=== PATIENT | female | born 1985 | race Caucasian/White ===

== ENCOUNTER 2022-06-10 11:15 | Outpatient (CLI) | payer BC, SELFPAY ==
[2022-06-10 13:57] LABS: Cholesterol* 235 mg/dL (90-199); Glucose* 101 mg/dL (60-115); HDL Cholesterol* 80 mg/dL (>=50); LDL Cholesterol Calculated 140 mg/dL (<100); Triglycerides* 76 mg/dL (40-149)
== END 2022-06-10 11:16 | disposition home or self-care (01) ==
PROVIDERS: Visit Provider Physician Assistant
DX: Z13.1 Encounter for screening for diabetes mellitus (principal); Z13.6 Encounter for screening for cardiovascular disorders
CPT/HCPCS: 80061; 82947

== ENCOUNTER 2022-07-03 14:27 | Outpatient (CLI) | payer BC, SELFPAY ==
--- NOTE | 2022-07-03 14:40 | CRLHL7_ITS ---
For Patients: As a result of the Century Cures Act, medical imaging exams and procedure reports are released immediately into your electronic medical record. You may view this report before your referring provider. If you have questions, please contact your health care provider. BILATERAL SCREENING MAMMOGRAM WITH COMPUTER-AIDED DETECTION AND TOMOSYNTHESIS TECHNIQUE: CC and MLO views were obtained. These mammographic images have been obtained using full-field digital technique. These mammographic images were interpreted with the benefit of computer-aided detection. Breast Tomosynthesis was used in this interpretation. COMPARISON FILM: 07/02/21, 06/06/20, 03/15/19. FINDINGS: The breasts are heterogeneously dense, which may obscure small masses IMPRESSION: There is no radiographic evidence for malignancy. ASSESSMENT: BI-RADS Category 1: Negative RECOMMENDATION: Routine screening mammogram in 1 year. A lay language report of this examination will be provided to the patient. Abdulaziz Atkinson M.D. Diagnostic Radiologist [email or web address] Transcribed: 2:16 pm DW/Dictated by: Abdulaziz Atkinsno MD @ 07/04/2022 9:46:00 AM (Electronically Signed)
== END 2022-07-03 14:28 | disposition home or self-care (01) ==
LOC: MAMMO 14:28
PROVIDERS: Visit Provider Physician Assistant
DX: Z12.31 Encounter for screening mammogram for malignant neoplasm of breast (principal); R92.2 Inconclusive mammogram
CPT/HCPCS: 77063; 77067

== ENCOUNTER 2023-01-01 08:29 | Outpatient (CLI) | payer BC, SELFPAY ==
--- OUTSIDE RECORDS SUMMARY | 2023-01-02 08:33 | XMS_ITS | Patient Health Record ---
Author Name Unknown Organization [facility] Address [address] [place] [address] [address] [place] [address] Care Team Providers Care Computer Security Coordinator Name Role Phone Colleen Dangelo Primary Care Provider UnavailJean-Paul Martinez Unavailable [phone] Herman Monroe Unavailable Unavailable Ligia Messina Unavailable [phone] Shana Avendano Unavailable [phone] Lorie Ann Unavailable [phone] HtConnie quigley Unavailable [phone] ALLERGIES No Known Allergies REASON FOR REFERRAL Reason [facility] PT and OT: MED X LUMBAR Continue forward with an extended program. We will continue to use a phase 3 post fusion exercise protocol. I agree with the recommendation to cut back to 30 minute appointments over the next 4 visits, then decrease to 1 visit per week up to the point of discharge. Discharge timing will be determined by the therapists and patient in consultation. The patient need not see me again necessarily. Diagnosis 1 Fusion of spine, lum bosacral region (M43.27) Diagnosis 2 Low back pain (M54.5 0) Diagnosis 3 Other intervertebral disc degeneration, lumbar region (M51.36) Diagnosis 4 Radiculopathy, lumba r region (M54.16) Diagnosis 5 Segmental and somati c dysfunction of lumbar region (M99.03) Diagnosis 6 Muscle wasting and a trophy, not elsewhere classified, multiple sites (M62.59) Referral Organization [facility] Referring Provider First Name Jean-Paul Referring Provider Last Name Maykel Referring Provider Speciality Occupation al Medicine Referred Organization [facility] Referred Provider Wesley GarciaitatiNela gaspar Referred Address [address] [facility],[place], [place],[address], Referred Provider Specialty Rehabilitati on General Notes Moe Flores 05/19 08:27:36 AM >[employer], no PA required. OK to schedule., Debby Cartwright 05/28/2022 10:36:13 AM >Therapy is already scheduled. Referral Priority Routine MEDICATIONS Medication SIG (Take, Route, Fr equency, Duration) Notes Start Date End Date Status Tylenol 325 MG 1 tablet as needed O rally prn, max of 2000MG Active SOCIAL HISTORY Tobacco Use: Social History Observation Description Date Details (start date - stop date) Never Smoker NA - NA Sex Assigned At : Social History Observation Description Sex Assigned At Unknown Tobacco Use/Smoking: Question Answer Notes Are you a nonsmoker Alcohol Screen Question Answer Notes Did you have a drink contain ing alcohol in the past year? Yes How often did you have a dri nk containing alcohol in the past year? 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) Problem Low back pain (M54.50) Active confirmed Low back pain (591383293) Problem Other intervertebral disc degeneration, lumbar region (M51.36) 08/16/19 21 Active confirmed Degeneration of lumbar intervertebral disc (57631217) Problem Radiculopathy, lumbar region (M54.16) 08/16/19 21 Active confirmed Lumbar radiculopathy (976956951) Problem Other muscle spasm (M62.838) 08/16/19 21 Active confirmed Spasm (20255958) Problem Segmental and somatic dysfunction of lumbar region (M99.03) 08/16/19 21 Active confirmed Somatic dysfunction of lumbar region (336220335) Problem Other malaise (R53.81) 08/16/19 21 Active confirmed Malaise (181465465) Problem Sprain of sacroiliac joint, sequela (S33.6XXS) 08/16/19 21 Active confirmed Sprain of sacroiliac joint (28780697) Problem Other cervical disc displacement, mid-cervical region, 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) 08/16/19 21 Active confirmed Displacement of cervical intervertebral disc without myelopathy (24363342) Problem Low back pain (M54.5) 08/16/19 21 Active confirmed Low back pain (634466351) VITAL SIGNS Blood pressure diastolic 72 mm Hg 05/24/2022 Height 64 in 05/24/2022 Blood pressure systolic 110 mm Hg 05/24/2022 Weight 171 lbs 05/24/2022 BMI 29.35 kg/m2 05/24/2022 Encounters Encounter Location Date Provider Diagnosis [facility] [address] [place] [address] 02/25/2022 Jean-Paul Brar [facility] [address] [place] [address] 01/02/2022 Ligia Messina Fusion of spine, lumbosacral region M43.27 ; Low back pain M54.50 ; Other intervertebral disc degeneration, lumbar region M51.36 and Segmental and somatic dysfunction of lumbar region M99.03 [facility] [address] [place] [address] 07/17/2022 Ligia Messina Fusion of spine, lumbosacral region M43.27 ; Low back pain M54.50 ; Other intervertebral disc degeneration, lumbar region M51.36 and Segmental and somatic dysfunction of lumbar region M99.03 [facility] [address] [place] [address] 07/31/2022 Shana Teachout [facility] [address] [place] [address] 08/19/2022 Shana Teachout [facility] [address] [place] [address] 09/30/2022 Ligia Messina [facility] [address] [place] [address] 10/22/2022 Shana Teachout [facility] [address] [place] [address] 11/26/2022 Shana Teachout [facility] [address] [place] [address] 12/24/2022 Shana Teachout [facility] [address] [facility] [place] [address] 09/09/2022 Shana Teachout [facility] [address] [place] [address] 03/04/2022 Ligia Messina Fusion of spine, lumbosacral region M43.27 ; Low back pain M54.50 ; Other intervertebral disc degeneration, lumbar region M51.36 and Segmental and somatic dysfunction of lumbar region M99.03 [facility] [address] [place] [address] 01/03/2022 Lorie Ann [facility] [address] [place] [address] 01/04/2022 Connie Htet Fusion of spine, lumbosacral region M43.27 ; Low back pain M54.50 ; Other intervertebral disc degeneration, lumbar region M51.36 and Segmental and somatic dysfunction of lumbar region M99.03 [facility] [address] [place] [address] 01/07/2022 Shana Teachout Fusion of spine, lumbosacral region M43.27 ; Low back pain M54.50 ; Other intervertebral disc degeneration, lumbar region M51.36 and Segmental and somatic dysfunction of lumbar region M99.03 [facility] [address] [place] [address] 01/10/2022 Ligia Messina Fusion of spine, lumbosacral region M43.27 ; Low back pain M54.50 ; Other intervertebral disc degeneration, lumbar region M51.36 and Segmental and somatic dysfunction of lumbar region M99.03 [facility] [address] [place] [address] 01/14/2022 Ligia Messina Fusion of spine, lumbosacral region M43.27 ; Low back pain M54.50 ; Other intervertebral disc degeneration, lumbar region M51.36 and Segmental and somatic dysfunction of lumbar region M99.03 [facility] [address] [place] [address] 01/17/2022 Ligia Messina Fusion of spine, lumbosacral region M43.27 ; Low back pain M54.50 ; Other intervertebral disc degeneration, lumbar region M51.36 and Segmental and somatic dysfunction of lumbar region M99.03 [facility] [address] [place] [address] 01/22/2022 Lorie Ann Fusion of spine, lumbosacral region M43.27 ; Low back pain M54.50 ; Other intervertebral disc degeneration, lumbar region M51.36 and Segmental and somatic dysfunction of lumbar region M99.03 [facility] [address] [place] [address] 01/24/2022 Ligia Messina Fusion of spine, lumbosacral region M43.27 ; Low back pain M54.50 ; Other intervertebral disc degeneration, lumbar region M51.36 and Segmental and somatic dysfunction of lumbar region M99.03 [facility] [address] [place] [address] 01/28/2022 Ligia Messina Fusion of spine, lumbosacral region M43.27 ; Low back pain M54.50 ; Other intervertebral disc degeneration, lumbar region M51.36 and Segmental and somatic dysfunction of lumbar region M99.03 [facility] [address] [place] [address] 01/31/2022 Lorie Ann [facility] [address] [place] [address] 02/04/2022 Shana Teachout Fusion of spine, lumbosacral region M43.27 ; Low back pain M54.50 ; Other intervertebral disc degeneration, lumbar region M51.36 and Segmental and somatic dysfunction of lumbar region M99.03 [facility] [address] [place] [address] 02/07/2022 Lorie Ann [facility] [address] [place] [address] 02/11/2022 Shana Teachout Fusion of spine, lumbosacral region M43.27 ; Low back pain M54.50 ; Other intervertebral disc degeneration, lumbar region M51.36 and Segmental and somatic dysfunction of lumbar region M99.03 [facility] [address] [place] [address] 02/14/2022 Ligia Messina [facility] [address] [place] [address] 02/18/2022 Ligia Messina Fusion of spine, lumbosacral region M43.27 ; Low back pain M54.50 ; Other intervertebral disc degeneration, lumbar region M51.36 and Segmental and somatic dysfunction of lumbar region M99.03 [facility] [address] [place] [address] 02/25/2022 Shana Teachout Fusion of spine, lumbosacral region M43.27 ; Low back pain M54.50 ; Other intervertebral disc degeneration, lumbar region M51.36 and Segmental and somatic dysfunction of lumbar region M99.03 [facility] [address] [place] [address] 04/25/2022 Ligia Messina Fusion of spine, lumbosacral region M43.27 ; Low back pain M54.50 ; Other intervertebral disc degeneration, lumbar region M51.36 and Segmental and somatic dysfunction of lumbar region M99.03 [facility] [address] [place] [address] 04/29/2022 Ligia Messina Fusion of spine, lumbosacral region M43.27 ; Low back pain M54.50 ; Other intervertebral disc degeneration, lumbar region M51.36 and Segmental and somatic dysfunction of lumbar region M99.03 [facility] [address] [place] [address] 05/02/2022 Ligia Messina Fusion of spine, lumbosacral region M43.27 ; Low back pain M54.50 ; Other intervertebral disc degeneration, lumbar region M51.36 and Segmental and somatic dysfunction of lumbar region M99.03 [facility] [address] [place] [address] 05/06/2022 Shana Teachout Fusion of spine, lumbosacral region M43.27 ; Low back pain M54.50 ; Other intervertebral disc degeneration, lumbar region M51.36 and Segmental and somatic dysfunction of lumbar region M99.03 [facility] [address] [place] [address] 05/09/2022 Lorie Ann [facility] [address] [place] [address] 05/21/2022 Shana Teachout Fusion of spine, lumbosacral region M43.27 ; Low back pain M54.50 ; Other intervertebral disc degeneration, lumbar region M51.36 and Segmental and somatic dysfunction of lumbar region M99.03 [facility] [address] [place] [address] 05/24/2022 Lorie Ann Fusion of spine, lumbosacral region M43.27 ; Low back pain M54.50 ; Other intervertebral disc degeneration, lumbar region M51.36 and Segmental and somatic dysfunction of lumbar region M99.03 [facility] [address] [place] [address] 05/24/2022 Jean-Paul Brar Fusion of spine, lumbosacral region M43.27 ; Other intervertebral disc degeneration, lumbar region M51.36 ; Low back pain M54.50 ; Radiculopathy, lumbar region M54.16 ; Segmental and somatic dysfunction of lumbar region M99.03 and Muscle wasting and atrophy, not elsewhere classified, multiple sites M62.59 [facility] [address] [place] [address] 04/22/2022 Shana Teachout Fusion of spine, lumbosacral region M43.27 ; Low back pain M54.50 ; Other intervertebral disc degeneration, lumbar region M51.36 and Segmental and somatic dysfunction of lumbar region M99.03 [facility] [address] [place] [address] 05/27/2022 Ligia Messina [facility] [address] [place] [address] 05/27/2022 Ligia Messina Fusion of spine, lumbosacral region M43.27 ; Low back pain M54.50 ; Other intervertebral disc degeneration, lumbar region M51.36 and Segmental and somatic dysfunction of lumbar region M99.03 [facility] [address] [place] [address] 05/30/2022 Shana Teachout Fusion of spine, lumbosacral region M43.27 ; Low back pain M54.50 ; Other intervertebral disc degeneration, lumbar region M51.36 and Segmental and somatic dysfunction of lumbar region M99.03 [facility] [address] [place] [address] 06/04/2022 Ligia Messina Fusion of spine, lumbosacral region M43.27 ; Low back pain M54.50 ; Other intervertebral disc degeneration, lumbar region M51.36 and Segmental and somatic dysfunction of lumbar region M99.03 [facility] [address] [place] [address] 06/06/2022 Ligia Messina Fusion of spine, lumbosacral region M43.27 ; Low back pain M54.50 ; Other intervertebral disc degeneration, lumbar region M51.36 and Segmental and somatic dysfunction of lumbar region M99.03 [facility] [address] [place] [address] 06/11/2022 Ligia Messina Fusion of spine, lumbosacral region M43.27 ; Low back pain M54.50 ; Other intervertebral disc degeneration, lumbar region M51.36 and Segmental and somatic dysfunction of lumbar region M99.03 [facility] [address] [place] [address] 06/18/2022 Shana Teachout Fusion of spine, lumbosacral region M43.27 ; Low back pain M54.50 ; Other intervertebral disc degeneration, lumbar region M51.36 and Segmental and somatic dysfunction of lumbar region M99.03 [facility] [address] [place] [address] 07/01/2022 Ligia Messina Fusion of spine, lumbosacral region M43.27 ; Low back pain M54.50 ; Other intervertebral disc degeneration, lumbar region M51.36 and Segmental and somatic dysfunction of lumbar region M99.03 [facility] [address] [place] [address] 07/09/2022 Shana Teachout Fusion of spine, lumbosacral region M43.27 ; Low back pain M54.50 ; Other intervertebral disc degeneration, lumbar region M51.36 and Segmental and somatic dysfunction of lumbar region M99.03 ASSESSMENTS Encounter Date Diagnosis Assessment Notes Treatment Notes Treatment Clinical Notes 01/02/2022 Fusion of spine, lumbosacral region (ICD-10 - M43.27) 01/02/2022 Low back pain (ICD-10 - M54.50) 01/04/2022 Fusion of spine, lumbosacral region (ICD-10 - M43.27) 01/04/2022 Low back pain (ICD-10 - M54.50) 01/07/2022 Fusion of spine, lumbosacral region (ICD-10 - M43.27) 01/07/2022 Low back pain (ICD-10 - M54.50) 01/10/2022 Fusion of spine, lumbosacral region (ICD-10 - M43.27) 01/10/2022 Low back pain (ICD-10 - M54.50) 01/14/2022 Fusion of spine, lumbosacral region (ICD-10 - M43.27) 01/14/2022 Low back pain (ICD-10 - M54.50) 01/17/2022 Fusion of spine, lumbosacral region (ICD-10 - M43.27) 01/17/2022 Low back pain (ICD-10 - M54.50) 01/22/2022 Fusion of spine, lumbosacral region (ICD-10 - M43.27) 01/22/2022 Low back pain (ICD-10 - M54.50) 01/24/2022 Fusion of spine, lumbosacral region (ICD-10 - M43.27) 01/24/2022 Low back pain (ICD-10 - M54.50) 01/28/2022 Fusion of spine, lumbosacral region (ICD-10 - M43.27) 01/28/2022 Low back pain (ICD-10 - M54.50) 02/04/2022 Fusion of spine, lumbosacral region (ICD-10 - M43.27) 02/04/2022 Low back pain (ICD-10 - M54.50) 02/11/2022 Fusion of spine, lumbosacral region (ICD-10 - M43.27) 02/11/2022 Low back pain (ICD-10 - M54.50) 02/18/2022 Fusion of spine, lumbosacral region (ICD-10 - M43.27) 02/18/2022 Low back pain (ICD-10 - M54.50) 02/25/2022 Fusion of spine, lumbosacral region (ICD-10 - M43.27) 02/25/2022 Low back pain (ICD-10 - M54.50) 03/04/2022 Fusion of spine, lumbosacral region (ICD-10 - M43.27) 03/04/2022 Low back pain (ICD-10 - M54.50) 04/22/2022 Fusion of spine, lumbosacral region (ICD-10 - M43.27) 04/22/2022 Low back pain (ICD-10 - M54.50) 04/25/2022 Fusion of spine, lumbosacral region (ICD-10 - M43.27) 04/25/2022 Low back pain (ICD-10 - M54.50) 04/29/2022 Fusion of spine, lumbosacral region (ICD-10 - M43.27) 04/29/2022 Low back pain (ICD-10 - M54.50) 05/02/2022 Fusion of spine, lumbosacral region (ICD-10 - M43.27) 05/02/2022 Low back pain (ICD-10 - M54.50) 05/06/2022 Fusion of spine, lumbosacral region (ICD-10 - M43.27) 05/06/2022 Low back pain (ICD-10 - M54.50) 05/27/2022 Fusion of spine, lumbosacral region (ICD-10 - M43.27) 05/27/2022 Low back pain (ICD-10 - M54.50) 06/11/2022 Fusion of spine, lumbosacral region (ICD-10 - M43.27) 06/11/2022 Low back pain (ICD-10 - M54.50) 06/18/2022 Fusion of spine, lumbosacral region (ICD-10 - M43.27) 06/18/2022 Low back pain (ICD-10 - M54.50) 07/17/2022 Fusion of spine, lumbosacral region (ICD-10 - M43.27) 07/17/2022 Low back pain (ICD-10 - M54.50) 07/09/2022 Fusion of spine, lumbosacral region (ICD-10 - M43.27) 07/09/2022 Low back pain (ICD-10 - M54.50) 07/01/2022 Fusion of spine, lumbosacral region (ICD-10 - M43.27) 07/01/2022 Low back pain (ICD-10 - M54.50) 06/06/2022 Fusion of spine, lumbosacral region (ICD-10 - M43.27) 06/06/2022 Low back pain (ICD-10 - M54.50) 06/04/2022 Fusion of spine, lumbosacral region (ICD-10 - M43.27) 06/04/2022 Low back pain (ICD-10 - M54.50) 05/30/2022 Fusion of spine, lumbosacral region (ICD-10 - M43.27) 05/30/2022 Low back pain (ICD-10 - M54.50) 05/24/2022 Fusion of spine, lumbosacral region (ICD-10 - M43.27) 05/24/2022 Other intervertebral disc degeneration, lumbar region (ICD-10 - M51.36) 05/24/2022 Low back pain (ICD-10 - M54.50) 05/21/2022 Fusion of spine, lumbosacral region (ICD-10 - M43.27) 05/24/2022 Fusion of spine, lumbosacral region (ICD-10 - M43.27) 05/21/2022 Low back pain (ICD-10 - M54.50) 05/24/2022 Other intervertebral disc degeneration, lumbar region (ICD-10 - M51.36) 05/21/2022 Other intervertebral disc degeneration, lumbar region (ICD-10 - M51.36) 05/24/2022 Low back pain (ICD-10 - M54.50) 05/30/2022 Other intervertebral disc degeneration, lumbar region (ICD-10 - M51.36) 06/04/2022 Other intervertebral disc degeneration, lumbar region (ICD-10 - M51.36) 06/06/2022 Other intervertebral disc degeneration, lumbar region (ICD-10 - M51.36) 07/01/2022 Other intervertebral disc degeneration, lumbar region (ICD-10 - M51.36) 07/09/2022 Other intervertebral disc degeneration, lumbar region (ICD-10 - M51.36) 07/17/2022 Other intervertebral disc degeneration, lumbar region (ICD-10 - M51.36) 06/18/2022 Other intervertebral disc degeneration, lumbar region (ICD-10 - M51.36) 06/11/2022 Other intervertebral disc degeneration, lumbar region (ICD-10 - M51.36) 05/27/2022 Other intervertebral disc degeneration, lumbar region (ICD-10 - M51.36) 05/06/2022 Other intervertebral disc degeneration, lumbar region (ICD-10 - M51.36) 05/02/2022 Other intervertebral disc degeneration, lumbar region (ICD-10 - M51.36) 04/29/2022 Other intervertebral disc degeneration, lumbar region (ICD-10 - M51.36) 04/25/2022 Other intervertebral disc degeneration, lumbar region (ICD-10 - M51.36) 04/22/2022 Other intervertebral disc degeneration, lumbar region (ICD-10 - M51.36) 03/04/2022 Other intervertebral disc degeneration, lumbar region (ICD-10 - M51.36) 02/25/2022 Other intervertebral disc degeneration, lumbar region (ICD-10 - M51.36) 02/18/2022 Other intervertebral disc degeneration, lumbar region (ICD-10 - M51.36) 02/11/2022 Other intervertebral disc degeneration, lumbar region (ICD-10 - M51.36) 02/04/2022 Other intervertebral disc degeneration, lumbar region (ICD-10 - M51.36) 01/28/2022 Other intervertebral disc degeneration, lumbar region (ICD-10 - M51.36) 01/24/2022 Other intervertebral disc degeneration, lumbar region (ICD-10 - M51.36) 01/22/2022 Other intervertebral disc degeneration, lumbar region (ICD-10 - M51.36) 01/17/2022 Other intervertebral disc degeneration, lumbar region (ICD-10 - M51.36) 01/14/2022 Other intervertebral disc degeneration, lumbar region (ICD-10 - M51.36) 01/10/2022 Other intervertebral disc degeneration, lumbar region (ICD-10 - M51.36) 01/07/2022 Other intervertebral disc degeneration, lumbar region (ICD-10 - M51.36) 01/04/2022 Other intervertebral disc degeneration, lumbar region (ICD-10 - M51.36) 01/02/2022 Other intervertebral disc degeneration, lumbar region (ICD-10 - M51.36) 01/02/2022 Segmental and somatic dysfunction of lumbar region (ICD-10 - M99.03) 01/04/2022 Segmental and somatic dysfunction of lumbar region (ICD-10 - M99.03) 01/07/2022 Segmental and somatic dysfunction of lumbar region (ICD-10 - M99.03) 01/10/2022 Segmental and somatic dysfunction of lumbar region (ICD-10 - M99.03) 01/14/2022 Segmental and somatic dysfunction of lumbar region (ICD-10 - M99.03) 01/17/2022 Segmental and somatic dysfunction of lumbar region (ICD-10 - M99.03) 01/22/2022 Segmental and somatic dysfunction of lumbar region (ICD-10 - M99.03) 01/24/2022 Segmental and somatic dysfunction of lumbar region (ICD-10 - M99.03) 01/28/2022 Segmental and somatic dysfunction of lumbar region (ICD-10 - M99.03) 02/04/2022 Segmental and somatic dysfunction of lumbar region (ICD-10 - M99.03) 02/11/2022 Segmental and somatic dysfunction of lumbar region (ICD-10 - M99.03) 02/18/2022 Segmental and somatic dysfunction of lumbar region (ICD-10 - M99.03) 02/25/2022 Segmental and somatic dysfunction of lumbar region (ICD-10 - M99.03) 03/04/2022 Segmental and somatic dysfunction of lumbar region (ICD-10 - M99.03) 04/22/2022 Segmental and somatic dysfunction of lumbar region (ICD-10 - M99.03) 04/25/2022 Segmental and somatic dysfunction of lumbar region (ICD-10 - M99.03) 04/29/2022 Segmental and somatic dysfunction of lumbar region (ICD-10 - M99.03) 05/02/2022 Segmental and somatic dysfunction of lumbar region (ICD-10 - M99.03) 05/06/2022 Segmental and somatic dysfunction of lumbar region (ICD-10 - M99.03) 05/27/2022 Segmental and somatic dysfunction of lumbar region (ICD-10 - M99.03) 06/11/2022 Segmental and somatic dysfunction of lumbar region (ICD-10 - M99.03) 06/18/2022 Segmental and somatic dysfunction of lumbar region (ICD-10 - M99.03) 07/17/2022 Segmental and somatic dysfunction of lumbar region (ICD-10 - M99.03) 07/09/2022 Segmental and somatic dysfunction of lumbar region (ICD-10 - M99.03) 07/01/2022 Segmental and somatic dysfunction of lumbar region (ICD-10 - M99.03) 06/06/2022 Segmental and somatic dysfunction of lumbar region (ICD-10 - M99.03) 06/04/2022 Segmental and somatic dysfunction of lumbar region (ICD-10 - M99.03) 05/30/2022 Segmental and somatic dysfunction of lumbar region (ICD-10 - M99.03) 05/24/2022 Radiculopathy, lumbar region (ICD-10 - M54.16) 05/21/2022 Segmental and somatic dysfunction of lumbar region (ICD-10 - M99.03) 05/24/2022 Segmental and somatic dysfunction of lumbar region (ICD-10 - M99.03) 05/24/2022 Segmental and somatic dysfunction of lumbar region (ICD-10 - M99.03) 05/24/2022 Muscle wasting and atrophy, not elsewhere classified, multiple sites (ICD-10 - M62.59) 05/24/2022 Other I, Heath Quijano , am serving as a scribe to document services personally performed by Jean-Paul Brar MD, based upon my observations and the provider's statements to me. All documentation has been reviewed by the aforementioned doctor prior to being entered into the official medical record. I, Jean-Paul Brar MD attest that the above named individual is acting in scribe capacity, has observed my performance of the services and has documented them in accordance with my direction. The documentation recorded by the scribe accurately reflects the service I personally performed and the decisions made by me. PLAN OF TREATMENT No Information Insurance Providers Payer Name Payer Address Payer Phone Subscriber Number Group Number Insured Name Patient Relationship to Insured Coverage Start Date Coverage End Date [facility] [place] [address] [address] [place] [address] [phone] [id number] Keith Francis Spouse - patient is the spouse of the insured 1 MEDICAL (GENERAL) HISTORY Medical History History ICD Code Acid reflux Anxiety Surgical History Surgery Date(Month/Year) cholecystectomy 11/2012 L3-4,L4-5 Fusion 10/29/2021
--- OUTSIDE RECORDS SUMMARY | 2023-01-02 08:33 | XMS_ITS | Continuity of Care Document ---
Author Name Unknown Organization [facility] Address [address] [place] [address] Phone Care Team Providers Care Dining Room Supervisor Name Role Phone Panvica PAC, Franklin Unavailable Unavailable Allergies, Adverse Reactions, Alerts Substance Reaction Status Criticality No Known Allergies Active No Inform ation Medications Medication Instructions Dosage Effective Dates (start - stop) Status Comments No Drug Therapy Prescribed Procedures Procedure Date Office/Outpatient Visit,Est, Mod 2022 Office/Outpatient Visit,Est, Mod 2021 Office/Outpatient Visit,Est, Mod 2021 Postop Followup Visit X-Ray Exam Lower Spine 2-3 Views 2021 TLIF - Includes PSF at the same level - PA TLIF - Additional Level(s) Includes PSF at the same level - PA ALIF / OLIF Anterior Lumbar Interbody Fu tree - PA Posterior Instrumentation, 3-6 Segments - PA PEEK/ Cage/ Implant, For Interbody Fusio n - PA TLIF - Includes PSF at the same level Ju TLIF - Additional Level(s) Includes PSF at the same level ALIF / OLIF Anterior Lumbar Interbody Fu tree Posterior Instrumentation, 3-6 Segments PEEK/ Cage/ Implant, For Interbody Fusio n Bone Marrow Aspiration, From I ncision Allograft, Morcelized, and/or BMP Office/Outpatient Visit,Est, Mod 2021 X-Ray Exam Of Lower Spine, Bending Office/Outpatient Visit,Est, Mod 2021 Office/Outpatient Visit,Est, Mod 2020 Office/Outpatient Visit,Est, Mod 2020 Office/Outpatient Visit,Est, Mod 2019 Office/Outpatient Visit,New, Mod 2019 Advance Directives Directive Yes / No Effective Date File Name No Information Encounters Encounter Description Practice Location Reason(s) For Visit Diagnoses Date Provider Providers Copied on Encounter Office/Outpat ient Visit,Est, Mod [facility], [address], [place], [place], [address], [place] tel:[phone] [facility] Encounter for other specified surgical aftercare 3 Hodan Reid. [facility], [address] [place] [address], [address], [facility], [place], [id number] , [place]. tel:[phone] Referring Provider: Franklin Bates, [facility] [address], [address], [place], [address] . tel:[phone] Office/Outpat ient Visit,Est, Mod [facility], [address], [place], [address], [place] tel:[phone] [facility] Encounter for other specified surgical aftercare 2 Hodan Reid. [facility], [address], [address], [facility] [place], [place], [address] , [place]. tel:[phone] Referring Provider: Franklin Bates, [facility] [address], [address], [place], [address] . tel:[phone] Office/Outpat ient Visit,Est, Mod [facility], [address], [place], [address], [place] tel:[phone] [facility] [place] Encounter for other specified surgical aftercare 2 Panvica Franklin. [facility], [address], [address], [place], [address] , [place]. tel:[phone] Referring Provider: Franklin Bates, [facility] [address], [address], [place], [address] . tel:[phone] [facility], [address], [place], [address], [place] tel:[phone] [facility] Encounter for other specified surgical aftercare 2 Monroe Herman. [facility], [address], [address], [place], [address] , [place]. tel:[phone] Referring Provider: Franklin Bates, [facility] [address], [address], [place], [address] . tel:[phone] [facility], [address], [place], [address], [place] tel:[phone] [facility] No Information 2 Panvica Franklin. [facility], [address], [address], [place], [address] , [place]. tel:[phone] Referring Provider: Franklin Bates, [facility] [address], [address], [place], [address] . tel:[phone] [facility], [address], [place], [address], [place] tel:[phone] [facility] No Information 2 Monroe Herman. [facility], [address], [address], [place], [address] , [place]. tel:[phone] Referring Provider: Franklin Bates, [facility] [address], [address], [place], [address] . tel:[phone] Office/Outpat ient Visit,Est, Mod [facility], [address], [place], [address], [place] tel:[phone] [facility] Other intervertebral disc displacement, lumbar regionOther intervertebral disc degeneration, lumbar region Jul- 2 Panvica Franklin. [facility], [address], [address], [place], [address] , [place]. [phone] Referring Provider: Franklin Bates, [facility] [address], [address], [place], [address] . tel:[phone] Office/Outpat ient Visit,Est, Mod [facility], [address], [place], [address], [place] tel:[phone] [facility] Other intervertebral disc degeneration, lumbar regionOther intervertebral disc displacement, lumbar region Mar-1 0-202 2 Panvica Franklin. [facility], [address], [address], [place], [address] , [place]. [phone] Referring Provider: Franklin Bates, [facility] [address], [address], [place], [address] . tel:[phone] Office/Outpat ient Visit,Est, Mod [facility], [address], [place], [address], [place] tel:[phone] [facility] Other intervertebral disc degeneration, lumbar regionLow back pain 1 Fer Sutton. [facility], [address], [address], [place], [address] , [place]. [phone] Referring Provider: Franklin Bates, [facility] [address], [address], [place], [address] . tel:[phone] Office/Outpat ient Visit,Est, Mod [facility], [address], [place], [address], [place] tel:[phone] [facility] Other intervertebral disc degeneration, lumbar regionOther intervertebral disc displacement, lumbar region Carlos Manuel-0 7-202 1 Panvica Franklin. [facility], [address] [place] [address], [address], [place], [address] , [place]. [phone] Referring Provider: Franklin Bates, [address] [place] [address], [address], [place], [address] . tel:[phone] Office/Outpat ient Visit,Est, Mod [facility], [address], [place], [address], [place] tel:[phone] [facility] Other intervertebral disc degeneration, lumbar regionOther intervertebral disc displacement, lumbar regionLow back pain Sep-0 3-202 0 Panvica Franklin. [facility], [address] [place] [address], [address], [facility], [address] , [place]. [phone] Referring Provider: Franklin Bates, [address] [place] [address], [address], [place], [address] . tel:[phone] Office/Outpat ient Visit,New, Mod [facility], [address], [place], [address], [place] tel:[phone] [facility] Other intervertebral disc degeneration, lumbar regionOther intervertebral disc displacement, lumbar regionLow back pain Quintin-0 2-202 0 Panvica Franklin. [facility], [address] [place] [address], [address], [place], [address] , [place]. [phone] Referring Provider: Franklin Bates, [address], [address], [place], [address] . tel:[phone] Family History Family Member Type Diagnosis Age At Onset No Information Payers Payer name Insurance type Covered constitution party ID Sofie rivers(s) [facility] [id number] Social History Type Description Quantity Date Captured Comments Alcohol Use Details Unknown Caffeine Use Details Unknown Tobacco Use Status Current non-smoker Smoking Status Never smoker Non-Smoking Tobacco Use Details : No Details Available : No Details Available Sex Female Vital Signs Date / Time: Height Weight BMI Pulse Rate Blood Pressure Temperature Respiratory Rate Body Surface Area Head Circumference Head Circ. Percentile Wt./Jah. Percentile BMI percentile Pulse Ox Inhaled Ox 2:11 PM 63.50 in 73.028 kg (161.00 lbs) 28.0 7 kg/m eter (2) Chief Complaint And Reason For Visit No Information Reason For Referral Reason For Referral No Information Plan Of Treatment Date Type Action Status Future Order: Radiology Order F/ E Lumbar (F/ELumb), Ordered on: Ordered History Of Present Illness Encounter Date Complaint History Of Prese nt Illness No Information Functional Status Date Functional Assessmen t No Information Medications Administered Medication Instructions Dosage Effective Dates (start - stop) Status Comments No Drug Therapy Prescribed Instructions Date Instruction Additional Infor mation No Information Assessments Type Assessment Date assessment Encounter for other specified amor rgical aftercare Patient Care Teams Name Effective Dates (start - stop) Status Members No Information
== END 2023-01-01 08:30 | disposition home or self-care (01) ==
LOC: NFLDREF 01-02 08:31
PROVIDERS: PCP Physician Assistant Medical; Visit Provider Physician Assistant Medical
DX: N39.0 Urinary tract infection, site not specified (principal); R10.9 Unspecified abdominal pain; N30.01 Acute cystitis with hematuria
CPT/HCPCS: 87086

== ENCOUNTER 2023-01-22 07:06 | Outpatient (CLI) | payer BC, SELFPAY ==
--- OUTSIDE RECORDS SUMMARY | 2023-01-22 17:36 | XMS_ITS | Continuity of Care Document ---
Author Name Unknown Organization [facility] Address [address] [place] [address] Phone Care Team Providers Care Japanese Tutor Name Role Phone Panvica PAC, Franklin Unavailable [...] C, [address], [place], [address], [place] tel:[phone] [facility] Encounter for other specified surgical aftercare 3 Hodan Reid. [facility], [address] [place] [address], [address], [facility], [address] , [place]. tel:[phone] Referring Provider: Franklin Bates, [facility] [address], [address], [place], [address] . tel:[phone] Office/Outpat ient Visit,Est, Mod [facility], [address], [place], [address], [place] tel:[phone] [facility] Encounter for other specified surgical aftercare 2 Hodan Reid. [facility], [address], [address], [facility], [place], [address] , [place]. tel:[phone] Referring Provider: Franklin Bates, [facility] [address], [address], [place], [address] . tel:[phone] Office/Outpat ient Visit,Est, Mod [facility], [address], [place], [address], [place] tel:[phone] [facility] [place] Encounter for other specified surgical aftercare 2 Panvica Franklin. [facility], [address], [address], [place], [address] , [place]. tel:[phone] Referring Provider: Franklin Bates, [facility] [address], [address], [place], [address] . tel:[phone] [facility], [address], [place], [address], [place] tel:[phone] [facility] Encounter for other specified surgical aftercare 2 Monroe Herman. [facility], [address], [address], [place], [address] , [place]. tel:[phone] Referring Provider: Franklin Bates, [facility] [address], [address], [place], [address] . tel:[phone] [facility], [address], [place], [address], [place] tel:[phone] [facility] No Information 2 Panvica Franklin. [facility], [address], [address], [place], [address] , [place]. tel:[phone] Referring Provider: Franklin Bates, [facility] [address], [address], [place], [address] . tel:[phone] [facility], [address], [place], [address], [place] tel:[phone] [facility] No Information 2 Monroe Herman. [facility] [place], [address], [address], [place], [address] , [place]. tel:[phone] Referring Provider: Franklin Bates, [facility] [address], [address], [place], [address] . tel:[phone] Office/Outpat ient Visit,Est, Mod [facility], [address], [place], [address], [place] tel:[phone] [facility] Other intervertebral disc displacement, lumbar regionOther intervertebral disc degeneration, lumbar region Jul- 2 Panvica Franklin. [facility], [address], [address], [place], [address] , [place]. [phone] Referring Provider: Farnklin Bates, [facility] [address], [address], [place], [address] . tel:[phone] Office/Outpat ient Visit,Est, Mod [facility], [address], [place], [address], [place] tel:[phone] [facility] Other intervertebral disc degeneration, lumbar regionOther intervertebral disc displacement, lumbar region Mar-1 0-202 2 Panvica Franklin. [facility], [address], [address], [place], [address] , [place]. [phone] Referring Provider: Franklin Bates, [facility] [address], [address], [place], [address] . tel:[phone] Office/Outpat ient Visit,Est, Mod [facility], [address], [place], [address], [place] tel:[phone] [facility] Other intervertebral disc degeneration, lumbar regionLow back pain 1 Fer Sutton. [facility] [place], [address], [address], [place], [address] , [place]. [phone] Referring Provider: Franklin Bates, [facility] [address], [address], [place], [address] . tel:[phone] Office/Outpat ient Visit,Est, Mod [facility], [address], [place], [address], [place] tel:[phone] [facility] Other intervertebral disc degeneration, lumbar regionOther intervertebral disc displacement, lumbar region Carlos Manuel-0 7-202 1 Panvica Franklin. [facility], [address] [place] [address], [address], [place], [address] , [place]. [phone] Referring Provider: Franklin Bates, [address], [address], [place], [address] . tel:[phone] Office/Outpat ient Visit,Est, Mod [facility], [address], [place], [address], [place] tel:[phone] [facility] Other intervertebral disc degeneration, lumbar regionOther intervertebral disc displacement, lumbar regionLow back pain Sep-0 3-202 0 Panvica Franklin. [facility], [address] [place] [address], [address], [facility] [place], [address] , [place]. [phone] Referring Provider: Franklin Bates, [address], [address], [place], [address] . tel:[phone] Office/Outpat ient Visit,New, Mod [facility], [address], [place], [address], [place] tel:[phone] [facility] Other intervertebral disc degeneration, lumbar regionOther intervertebral disc displacement, lumbar regionLow back pain Quintin-0 2-202 0 Panvica Franklin. [facility], [address] [place] [address], [address], [place], [address] , [place]. [phone] Referring Provider: Franklin Bates, [address], [address], [place], [address] . tel:[phone] Family History Family Member Type Diagnosis Age At Onset No Information Payers Payer name Insurance type Covered constitution party ID Sofie rivers(s) [facility] [id number] Social History Type Description Quantity Date Captured [...]
== END 2023-01-22 07:07 | disposition home or self-care (01) ==
LOC: NFLDREF 17:35
PROVIDERS: PCP Physician Assistant Medical; Referring Provider Physician Assistant Medical; Visit Provider Physician Assistant Medical
DX: R30.0 Dysuria (principal); N39.0 Urinary tract infection, site not specified; R31.9 Hematuria, unspecified; N30.01 Acute cystitis with hematuria; R31.29 Other microscopic hematuria
CPT/HCPCS: 87086

== ENCOUNTER 2023-04-02 07:31 | Outpatient (CLI) | payer BC, SELFPAY ==
--- OUTSIDE RECORDS SUMMARY | 2023-04-02 07:33 | XMS_ITS | Continuity of Care Document ---
Author Name Unknown Organization [facility] Address [address] [place] [address] Phone Care Team Providers Care Cafe Helper Name Role Phone Panvica PAC, Franklin Unavailable [...] C, [address], [place], [id number], [place] tel:[phone] [facility] Encounter for other specified surgical aftercare 3 Hodan Reid. [facility], [address] [place] [address], [address], [facility], [place], [id number] , [place]. tel:[phone] Referring Provider: Franklin Bates, [facility] [address], [address], [place], [address] . tel:[phone] Office/Outpat ient Visit,Est, [facility], [address], [place], [place], [address], [place] tel:[phone] [facility] Encounter for other specified surgical aftercare 2 Hodan Reid. [facility], [address], [address], [facility] [place], [place], [address] , [place]. tel:[phone] Referring Provider: Franklin Bates, [facility] [address], [address], [place], [address] . tel:[phone] Office/Outpat ient Visit,Est, Mod [facility], [address], [place], [place], [address], [place] tel:[phone] [facility] [place] Encounter for other specified surgical aftercare 2 Panvica Franklin. [facility], [address], [address], [place], [place], [address] , [place]. tel:[phone] Referring Provider: Franklin Bates, [facility] [address], [address], [place], [address] . tel:[phone] [facility], [address], [place], [address], [place] tel:[phone] [facility] Encounter for other specified surgical aftercare 2 Monroe Herman. [facility], [address], [address], [place], [address] , [place]. tel:[phone] Referring Provider: Franklin Bates, [facility] [address], [address], [place], [address] . tel:[phone] [facility], [address], [place], [address], [place] tel:[phone] [facility] No Information 2 Panvica Franklin. [facility], [address], [address], [place], [place], [address] , [place]. tel:[phone] Referring Provider: Franklin Bates, [facility] [address], [address], [place], [address] . tel:[phone] [facility], [address], [place], [address], [place] tel:[phone] [facility] No Information 2 Monroe Herman. [facility], [address], [address], [place], [address] , [place]. tel:[phone] Referring Provider: Franklin Bates, [facility] [address], [address], [place], [address] . tel:[phone] Office/Outpat ient Visit,Est, Mod [facility], [address], [place], [place], [address], [place] tel:[phone] [facility] Other intervertebral disc displacement, lumbar regionOther intervertebral disc degeneration, lumbar region Jul- 2 Panvica Franklin. [facility], [address], [address], [place], [address] , [place]. [phone] Referring Provider: Franklin Bates, [facility] [address], [address], [place], [address] . tel:[phone] Office/Outpat ient Visit,Est, Mod [facility], [address], [place], [address], [place] tel:[phone] [facility] Other intervertebral disc degeneration, lumbar regionOther intervertebral disc displacement, lumbar region Mar-1 0-202 2 Panvica Franklin. [facility], [address], [address], [place], [address] , [place]. [phone] Referring Provider: Franklin Bates, [facility] [address], [address], [place], [address] . tel:[phone] Office/Outpat ient Visit,Est, [facility], [address], [place], [address], [place] tel:[phone] [facility] Other intervertebral disc degeneration, lumbar regionLow back pain 1 Fer Sutton. [facility], [address], [address], [place], [place], [address] , [place]. [phone] Referring Provider: Franklin Bates, [facility] [address], [address], [place], [address] . tel:[phone] Office/Outpat ient Visit,Est, [facility], [address], [place], [address], [place] tel:[phone] [facility] Other intervertebral disc degeneration, lumbar regionOther intervertebral disc displacement, lumbar region Carlos Manuel-0 7-202 1 Panvica Franklin. [facility], [address] [place] [address], [address], [place], [address] , [place]. [phone] Referring Provider: Franklin Bates, [address], [address], [place], [address] . tel:[phone] Office/Outpat ient Visit,Est, [facility], [address], [place], [address], [place] tel:[phone] [facility] Other intervertebral disc degeneration, lumbar regionOther intervertebral disc displacement, lumbar regionLow back pain Sep-0 3-202 0 Panvica Franklin. [facility], [address] [place] [address], [address], [facility], [address] , [place]. [phone] Referring Provider: Franklin Bates, [address], [address], [place], [address] . tel:[phone] Office/Outpat ient Visit,New, Mod [facility], [address], [place], [place], [address], [place] tel:[phone] [facility] Other intervertebral disc degeneration, lumbar regionOther intervertebral disc displacement, lumbar regionLow back pain Quintin-0 2-202 0 Panvica Franklin. [facility], [address] [place] [address], [address], [place], [address] , [place]. [phone] Referring Provider: Franklin Bates, [address], [address], [place], [address] . tel:[phone] Family History Family Member Type Diagnosis Age At Onset No Information Payers Payer name Insurance type Covered democrat ID Sofie rivers(s) [facility] [id number] Social History Type Description Quantity Date Captured [...]
--- OUTSIDE RECORDS SUMMARY | 2023-04-02 07:33 | XMS_ITS | Patient Health Record ---
Author Name Unknown Organization [facility] Address [address] [place] [address] [address] [place] [address] Care Team Providers Care Fabrication Mig Welder Name Role Phone Antolin Colleen Primary Care Provider UnavailJean-Paul Martinez Unavailable [phone] Herman Monroe MD Unavailable Unavailable Ligia Messina Unavailable [phone] Shana Avendano Unavailable [phone] Lorie Ann Unavailable [phone] ALLERGIES No Known Allergies REASON FOR REFERRAL [...] Provider Wesley GarciaitatiNela gaspar Referred Address [address] [place],[address], Referred Provider Specialty Rehabilitati on General Notes LeedahlJosueMoe 05/19 08:27:36 AM >[employer] Fed, no PA [...] lumbosacral region (M43.27) Active confirmed Lumbosacral arthrodesis (07307836) Problem Muscle wasting and atrophy, not elsewhere classified, multiple sites (M62.59) Active confirmed Muscle wasting disorder (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) Problem Low back pain (M54.50) Active confirmed Low back pain (132935123) Problem Other intervertebral disc degeneration, lumbar region (M51.36) 08/16/19 21 Active confirmed Degeneration of lumbar intervertebral disc (98487455) Problem Radiculopathy, lumbar region (M54.16) 08/16/19 21 Active confirmed Lumbar radiculopathy (300377824) Problem Other muscle spasm (M62.838) 08/16/19 21 Active confirmed Spasm (91548739) Problem Segmental and somatic dysfunction of lumbar region (M99.03) 08/16/19 21 Active confirmed Somatic dysfunction of lumbar region (895811432) Problem Other malaise (R53.81) 08/16/19 21 Active confirmed Malaise (687952621) Problem Sprain of sacroiliac joint, sequela (S33.6XXS) 08/16/19 21 Active confirmed Sprain of sacroiliac joint (12768556) Problem Other cervical disc displacement, mid-cervical region, 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) 08/16/19 21 Active confirmed Displacement of cervical intervertebral disc without myelopathy (05726129) Problem Low back pain (M54.5) 08/16/19 21 Active confirmed Low back pain (606965531) VITAL SIGNS Blood pressure diastolic 72 mm Hg 05/24/2022 Height 64 in 05/24/2022 Blood pressure systolic 110 mm Hg 05/24/2022 Weight 171 lbs 05/24/2022 BMI 29.35 kg/m2 05/24/2022 Encounters Encounter Location Date Provider Diagnosis [facility] [address] [place] [address] 07/17/2022 Ligia Messina Fusion of spine, lumbosacral region M43.27 ; Low back pain M54.50 ; Other intervertebral disc degeneration, lumbar region M51.36 and Segmental and somatic dysfunction of lumbar region M99.03 [facility] [address] [place] [address] 07/31/2022 Shana Teachout [facility] [address] [place] [address] 08/19/2022 Shana Teachout [facility] [address] [place] [address] 09/30/2022 Ligia Messina [facility] [address] [place] [address] 10/22/2022 Shana Teachout [facility] [address] [place] [address] 11/26/2022 Shana Teachout [facility] [address] [place] [address] 12/24/2022 Shana Teachout [facility] [address] [place] [address] 09/09/2022 Shana Teachout [facility] [address] [place] [address] 04/25/2022 Ligia Messina Fusion of spine, lumbosacral region M43.27 ; Low back pain M54.50 ; Other intervertebral disc degeneration, lumbar region M51.36 and Segmental and somatic dysfunction of lumbar region M99.03 [facility] [address] [facility] [place] [address] 04/29/2022 Ligia Messina Fusion of spine, lumbosacral region M43.27 ; Low back pain M54.50 ; Other intervertebral disc degeneration, lumbar region M51.36 and Segmental and somatic dysfunction of lumbar region M99.03 [facility] [address] [place] [address] 05/02/2022 Ligia Messina Fusion of spine, lumbosacral region M43.27 ; Low back pain M54.50 ; Other intervertebral disc degeneration, lumbar region M51.36 and Segmental and somatic dysfunction of lumbar region M99.03 [facility] [address] [place] [address] 05/06/2022 Shana Teachout Fusion of spine, lumbosacral region M43.27 ; Low back pain M54.50 ; Other intervertebral disc degeneration, lumbar region M51.36 and Segmental and somatic dysfunction of lumbar region M99.03 [facility] [address] [place] [address] 05/09/2022 Lorie Ann [facility] [address] [place] [address] 05/21/2022 Shana Teachout Fusion of spine, lumbosacral region M43.27 ; Low back pain M54.50 ; Other intervertebral disc degeneration, lumbar region M51.36 and Segmental and somatic dysfunction of lumbar region M99.03 [facility] [address] [place] [address] 05/24/2022 Lorie Ann Fusion of spine, lumbosacral region M43.27 ; Low back pain M54.50 ; Other intervertebral disc degeneration, lumbar region M51.36 and Segmental and somatic dysfunction of lumbar region M99.03 [facility] [address] [place] [address] 05/24/2022 Jean-Paul Brar Fusion of spine, lumbosacral region M43.27 ; Other intervertebral disc degeneration, lumbar region M51.36 ; Low back pain M54.50 ; Radiculopathy, lumbar region M54.16 ; Segmental and somatic dysfunction of lumbar region M99.03 and Muscle wasting and atrophy, not elsewhere classified, multiple sites M62.59 [facility] [address] [place] [address] 04/22/2022 Shana Teachout Fusion of spine, lumbosacral region M43.27 ; Low back pain M54.50 ; Other intervertebral disc degeneration, lumbar region M51.36 and Segmental and somatic dysfunction of lumbar region M99.03 [facility] [address] [place] [address] 05/27/2022 Ligia Messina [facility] [address] [place] [address] 05/27/2022 Ligia Messina Fusion of spine, lumbosacral region M43.27 ; Low back pain M54.50 ; Other intervertebral disc degeneration, lumbar region M51.36 and Segmental and somatic dysfunction of lumbar region M99.03 [facility] [address] [place] [address] 05/30/2022 Shana Teachout Fusion of spine, lumbosacral region M43.27 ; Low back pain M54.50 ; Other intervertebral disc degeneration, lumbar region M51.36 and Segmental and somatic dysfunction of lumbar region M99.03 [facility] [address] [place] [address] 06/04/2022 Ligia Messina Fusion of spine, lumbosacral region M43.27 ; Low back pain M54.50 ; Other intervertebral disc degeneration, lumbar region M51.36 and Segmental and somatic dysfunction of lumbar region M99.03 [facility] [address] [place] [address] 06/06/2022 Ligia Messina Fusion of spine, lumbosacral region M43.27 ; Low back pain M54.50 ; Other intervertebral disc degeneration, lumbar region M51.36 and Segmental and somatic dysfunction of lumbar region M99.03 [facility] [address] [place] [address] 06/11/2022 Ligia Messina Fusion of spine, lumbosacral region M43.27 ; Low back pain M54.50 ; Other intervertebral disc degeneration, lumbar region M51.36 and Segmental and somatic dysfunction of lumbar region M99.03 [facility] [address] [place] [address] 06/18/2022 Shana Teachout Fusion of spine, lumbosacral region M43.27 ; Low back pain M54.50 ; Other intervertebral disc degeneration, lumbar region M51.36 and Segmental and somatic dysfunction of lumbar region M99.03 [facility] [address] [place] [address] 07/01/2022 Ligia Messina Fusion of spine, lumbosacral region M43.27 ; Low back pain M54.50 ; Other intervertebral disc degeneration, lumbar region M51.36 and Segmental and somatic dysfunction of lumbar region M99.03 [facility] [address] [place] [address] 07/09/2022 Shana Teachout Fusion of spine, lumbosacral region M43.27 ; Low back pain M54.50 ; Other intervertebral disc degeneration, lumbar region M51.36 and Segmental and somatic dysfunction of lumbar region M99.03 ASSESSMENTS Encounter Date Diagnosis Assessment Notes Treatment Notes Treatment Clinical Notes 04/22/2022 Fusion of spine, lumbosacral region (ICD-10 [...] 05/06/2022 Low back pain (ICD-10 - M54.50) 07/01/2022 Fusion of spine, lumbosacral region (ICD-10 - M43.27) 07/01/2022 Low back pain (ICD-10 - M54.50) 07/09/2022 Fusion of spine, lumbosacral region (ICD-10 - M43.27) 07/09/2022 Low back pain (ICD-10 - M54.50) 07/17/2022 Fusion of spine, lumbosacral region (ICD-10 - M43.27) 07/17/2022 Low back pain (ICD-10 - M54.50) 06/18/2022 Fusion of spine, lumbosacral region (ICD-10 - M43.27) 06/18/2022 Low back pain (ICD-10 - M54.50) 06/11/2022 Fusion of spine, lumbosacral region (ICD-10 - M43.27) 06/11/2022 Low back pain (ICD-10 - M54.50) 06/06/2022 Fusion of spine, lumbosacral region (ICD-10 - M43.27) 06/06/2022 Low back pain (ICD-10 - M54.50) 06/04/2022 Fusion of spine, lumbosacral region (ICD-10 - M43.27) 06/04/2022 Low back pain (ICD-10 - M54.50) 05/30/2022 Fusion of spine, lumbosacral region (ICD-10 - M43.27) 05/30/2022 Low back pain (ICD-10 - M54.50) 05/27/2022 Fusion of spine, lumbosacral region (ICD-10 - M43.27) 05/27/2022 Low back pain (ICD-10 - M54.50) 05/24/2022 Fusion of spine, lumbosacral region (ICD-10 - M43.27) 05/24/2022 Other intervertebral disc degeneration, lumbar region (ICD-10 - M51.36) 05/24/2022 Fusion of spine, lumbosacral region (ICD-10 - M43.27) 05/24/2022 Low back pain (ICD-10 - M54.50) 05/21/2022 Fusion of spine, lumbosacral region (ICD-10 - M43.27) 05/21/2022 Low back pain (ICD-10 - M54.50) 05/21/2022 Other intervertebral disc degeneration, lumbar region (ICD-10 - M51.36) 05/24/2022 Other intervertebral disc degeneration, lumbar region (ICD-10 - M51.36) 05/24/2022 Low back pain (ICD-10 - M54.50) 05/27/2022 Other intervertebral disc degeneration, lumbar region (ICD-10 - M51.36) 05/30/2022 Other intervertebral disc degeneration, lumbar region [...] degeneration, lumbar region (ICD-10 - M51.36) 04/22/2022 Segmental and somatic dysfunction of lumbar [...] 05/24/2022 Radiculopathy, lumbar region (ICD-10 - M54.16) 05/24/2022 Segmental and somatic dysfunction of lumbar region (ICD-10 - M99.03) 05/21/2022 Segmental and somatic dysfunction of lumbar [...] Insured Coverage Start Date Coverage End Date [facility] [address] [address] [place] [address] [id number] Keith Francis Spouse - patient is the spouse of the insured 1 MEDICAL (GENERAL) HISTORY Medical History History ICD Code Acid reflux Anxiety Surgical History Surgery Date(Month/Year) cholecystectomy 11/2012 L3-4,L4-5 Fusion 10/29/2021
--- NOTE | 2023-04-02 07:45 | CRLHL7_ITS ---
For Patients: As a result of the Century Cures Act, medical imaging exams and procedure reports are released immediately into your electronic medical record. You may view this report before your referring provider. If you have questions, please contact your health care provider. DIGITAL DIAGNOSTIC BILATERAL MAMMOGRAM USING TOMOSYNTHESIS AND COMPUTER-AIDED DETECTION LEFT BREAST ULTRASOUND CLINICAL HISTORY: LEFT breast lump. COMPARISON: 07/03/2022, 07/02/2021, 06/06/20, 03/15/2019. TECHNIQUE: Digital BILATERAL mammogram in four projections. Tomosynthesis and CAD utilized. Real-time ultrasound imaging of LEFT breast with imaging documentation. BREAST COMPOSITION: There are areas of scattered fibroglandular density. FINDINGS: 3D CC/MLO BILATERAL mammogram images submitted. No suspicious masses or architectural distortion. Benign calcifications noted. No adenopathy. Targeted LEFT breast ultrasound performed in the area of concern 9 o`clock 5 cm from the nipple. Normal fibroglandular tissue is present. No fibrocystic change or mass. IMPRESSION: Normal BILATERAL mammogram images and normal targeted LEFT breast ultrasound. No evidence of malignancy. RECOMMENDATIONS: Routine BILATERAL screening mammography. Results and recommendations discussed with the patient. BI-RADS Category 2: Benign A lay language report of this examination will be provided to the patient. Dictated by Abdulaziz Atkinson MD @ 04/02/2023 11:05:41 AM jj/Dictated by: Abdulaziz Atkinson MD @ 04/02/2023 11:05:00 AM (Electronically Signed)
--- NOTE | 2023-04-02 08:15 | CRLHL7_ITS ---
For Patients: As a result of the Cures Act, medical imaging exams and procedure reports are released immediately into your electronic medical record. You may view this report before your referring provider. If you have questions, please contact your health care provider. PLEASE SEE DIGITAL DIAGNOSTIC BILATERAL MAMMOGRAM PERFORMED SAME DAY CRL:teressa gannon/Dictated by: Abdulaziz Atkinson MD @ 04/02/2023 11:05:00 AM (Electronically Signed)
== END 2023-04-02 07:32 | disposition home or self-care (01) ==
LOC: MAMMO 07:31
PROVIDERS: PCP Physician Assistant Medical; Visit Provider Physician Assistant
DX: N63.20 Unspecified lump in the left breast, unspecified quadrant (principal)
CPT/HCPCS: 76642; 77066; G0279

== ENCOUNTER 2023-04-23 14:51 | Outpatient (CLI) | payer BC, SELFPAY ==
--- OUTSIDE RECORDS SUMMARY | 2023-04-23 14:53 | XMS_ITS | Continuity of Care Document ---
Author Name Unknown Organization [facility] Address [address] [place] [address] Phone Care Team Providers Care Procedure Analyst Name Role Phone Panvica PAC, Franklin Unavailable [...] C, [address], [place], [address], [place] tel:[phone] [facility] Encounter for other specified surgical aftercare 3 Hodan Reid. [facility], [address] [place] [address], [address], [facility], [place], [address] , [place]. tel:[phone] Referring Provider: Franklin Bates, [facility] [address], [address], [place], [address] . tel:[phone] Office/Outpat ient Visit,Est, [facility], [address], [place], [address], [place] tel:[phone] [facility] Encounter for other specified surgical aftercare 2 Hodan Reid. [facility], [address], [address], [facility] [place], [place], [address] , [place]. tel:[phone] Referring Provider: Franklin Bates, [facility] [address], [address], [place], [address] . tel:[phone] Office/Outpat ient Visit,Est, Mod [facility], [address], [place], [address], [place] tel:[phone] [facility] [place] Encounter for other specified surgical aftercare 2 Panvica Franklin. [facility], [address], [address], [place], [place], [address] , [place]. tel:[phone] Referring Provider: Franklin Bates, [facility] [address], [address], [place], [address] . tel:[phone] [facility], [address], [place], [place], [address], [place] tel:[phone] [facility] Encounter for other specified surgical aftercare 2 Monroe Herman. [facility], [address], [address], [place], [address] , [place]. tel:[phone] Referring Provider: Franklin Bates, [facility] [address], [address], [place], [address] . tel:[phone] [facility], [address], [place], [address], [place] tel:[phone] [facility] No Information 2 Panvica Franklin. [facility], [address], [address], [place], [place], [address] , [place]. tel:[phone] Referring Provider: Franklin Bates, [facility] [address], [address], [place], [address] . tel:[phone] [facility], [address], [place], [place], [address], [place] tel:[phone] [facility] No Information 2 Monroe Herman. [facility], [address], [address], [place], [place], [address] , [place]. tel:[phone] Referring Provider: Franklin Bates, [facility] [address], [address], [place], [address] . tel:[phone] Office/Outpat ient Visit,Est, Mod [facility], [address], [place], [address], [place] tel:[phone] [facility] Other intervertebral disc displacement, lumbar regionOther intervertebral disc degeneration, lumbar region Jul- 2 Panvica Franklin. [facility], [address], [address], [place], [place], [address] , [place]. [phone] Referring Provider: Franklin Bates, [facility] [address], [address], [place], [address] . tel:[phone] Office/Outpat ient Visit,Est, Mod [facility], [address], [place], [place], [address], [place] tel:[phone] [facility] Other intervertebral disc degeneration, lumbar regionOther intervertebral disc displacement, lumbar region Mar-1 0-202 2 Panvica Franklin. [facility], [address], [address], [place], [address] , [place]. [phone] Referring Provider: Franklin Bates, [facility] [address], [address], [place], [address] . tel:[phone] Office/Outpat ient Visit,Est, Mod [facility], [address], [place], [place], [address], [place] tel:[phone] [facility] Other intervertebral disc degeneration, lumbar regionLow back pain 1 Fer Sutton. [facility], [address], [address], [place], [place], [address] , [place]. [phone] Referring Provider: Franklin Bates, [facility] [address], [address], [place], [address] . tel:[phone] Office/Outpat ient Visit,Est, [facility], [address], [place], [address], [place] tel:[phone] [facility] Other intervertebral disc degeneration, lumbar regionOther intervertebral disc displacement, lumbar region Carlos Manuel-0 7-202 1 Panvica Franklin. [facility], [address] [place] [address], [address], [place], [place], [address] , [place]. [phone] Referring Provider: Franklin Bates, [address], [address], [facility] [place], [address] . tel:[phone] Office/Outpat ient Visit,Est, [facility], [address], [place], [address], [place] tel:[phone] [facility] Other intervertebral disc degeneration, lumbar regionOther intervertebral disc displacement, lumbar regionLow back pain Sep-0 3-202 0 Panvica Franklin. [facility], [address] [place] [address], [address], [facility] [place], [address] , [place]. [phone] Referring Provider: Franklin Bates, [address], [address], [place] [place], [address] . tel:[phone] Office/Outpat ient Visit,New, Mod [facility], [address], [place], [place], [address], [place] tel:[phone] [facility] Other intervertebral disc degeneration, lumbar regionOther intervertebral disc displacement, lumbar regionLow back pain Quintin-0 2-202 0 Panvica Franklin. [facility], [address] [place] [address], [address], [place], [place], [address] , [place]. [phone] Referring Provider: Franklin Bates, [address], [address], [place], [address] . tel:[phone] Family History Family Member Type Diagnosis Age At Onset No Information Payers Payer name Insurance type Covered libertarian ID Sofie rivers(s) [facility] [id number] Social History Type Description Quantity Date Captured [...]
--- OUTSIDE RECORDS SUMMARY | 2023-04-23 14:54 | XMS_ITS | Patient Health Record ---
Author Name Unknown Organization [facility] Address [address] [place] [address] [address] [place] [address] Care Team Providers Care Manager Adult Name Role Phone Antolin Colleen Primary Care Provider UnavailJean-Paul Martinez Unavailable [phone] Herman Monroe MD Unavailable Unavailable Ligia Messina Unavailable [phone] Shana Avendano Unavailable [phone] Lorie Ann Unavailable [phone] ALLERGIES No Known Allergies REASON FOR REFERRAL [...] Provider Wesley GarciaitatiNela gaspar Referred Address [address] [place],[address], Referred Provider Specialty Rehabilitati on General Notes [...] lumbosacral region (M43.27) Active confirmed Lumbosacral arthrodesis (83684697) Problem Muscle wasting and atrophy, not elsewhere classified, multiple sites (M62.59) Active confirmed 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) Problem Low back pain (M54.50) Active confirmed Low back pain (384480015) Problem Other intervertebral disc degeneration, lumbar region (M51.36) 08/16/19 21 Active confirmed Degeneration of lumbar intervertebral disc (87197878) Problem Radiculopathy, lumbar region (M54.16) 08/16/19 21 Active confirmed Lumbar radiculopathy (723776394) Problem Other muscle spasm (M62.838) 08/16/19 21 Active confirmed Spasm (46814618) Problem Segmental and somatic dysfunction of lumbar region (M99.03) 08/16/19 21 Active confirmed Somatic dysfunction of lumbar region (367364365) Problem Other malaise (R53.81) 08/16/19 21 Active confirmed Malaise (763602799) Problem Sprain of sacroiliac joint, sequela (S33.6XXS) 08/16/19 21 Active confirmed Sprain of sacroiliac joint (74868822) Problem Other cervical disc displacement, mid-cervical region, 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) 08/16/19 21 Active confirmed Displacement of cervical intervertebral disc without myelopathy (84111292) Problem Low back pain (M54.5) 08/16/19 21 Active confirmed Low back pain (135053711) VITAL SIGNS Blood pressure diastolic 72 mm Hg 05/24/2022 Height 64 in 05/24/2022 Blood pressure systolic 110 mm Hg 05/24/2022 Weight 171 lbs 05/24/2022 BMI 29.35 kg/m2 05/24/2022 Encounters Encounter Location Date Provider Diagnosis [facility] [address] [place] [address] 04/25/2022 Ligia Messina Fusion of spine, lumbosacral region M43.27 ; Low back pain M54.50 ; Other intervertebral disc degeneration, lumbar region M51.36 and Segmental and somatic dysfunction of lumbar region M99.03 [facility] [address] [place] [address] 04/29/2022 Ligia Messina Fusion of spine, lumbosacral region M43.27 ; Low back pain M54.50 ; Other intervertebral disc degeneration, lumbar region M51.36 and Segmental and somatic dysfunction of lumbar region M99.03 [facility] [address] [place] [address] 05/02/2022 Ligia Messina Fusion of spine, lumbosacral region M43.27 ; Low back pain M54.50 ; Other intervertebral disc degeneration, lumbar region M51.36 and Segmental and somatic dysfunction of lumbar region M99.03 [facility] [address] [place] [address] 05/06/2022 Shana Teachout Fusion of spine, lumbosacral region M43.27 ; Low back pain M54.50 ; Other intervertebral disc degeneration, lumbar region M51.36 and Segmental and somatic dysfunction of lumbar region M99.03 [facility] [address] [place] [address] 05/09/2022 Lorie Ann [facility] [address] [place] [address] 05/21/2022 Shana Teachout Fusion of spine, lumbosacral region M43.27 ; Low back pain M54.50 ; Other intervertebral disc degeneration, lumbar region M51.36 and Segmental and somatic dysfunction of lumbar region M99.03 [facility] [address] [place] [address] 05/24/2022 Lorie Marissa Fusion of spine, lumbosacral region M43.27 ; Low back pain M54.50 ; Other intervertebral disc degeneration, lumbar region M51.36 and Segmental and somatic dysfunction of lumbar region M99.03 [facility] [address] [place] [address] 05/24/2022 Jean-Paul Brar Fusion of spine, lumbosacral region M43.27 ; Other intervertebral disc degeneration, lumbar region M51.36 ; Low back pain M54.50 ; Radiculopathy, lumbar region M54.16 ; Segmental and somatic dysfunction of lumbar region M99.03 and Muscle wasting and atrophy, not elsewhere classified, multiple sites M62.59 [facility] [address] [place] [address] 05/27/2022 Ligia Messina [facility] [address] [place] [address] 05/27/2022 Ligia Messina Fusion of spine, lumbosacral region M43.27 ; Low back pain M54.50 ; Other intervertebral disc degeneration, lumbar region M51.36 and Segmental and somatic dysfunction of lumbar region M99.03 [facility] [address] [place] [address] 05/30/2022 Shana Avendano Fusion of spine, lumbosacral region M43.27 ; Low back pain M54.50 ; Other intervertebral disc degeneration, lumbar region M51.36 and Segmental and somatic dysfunction of lumbar region M99.03 [facility] [address] [place] [address] 06/04/2022 Ligia Messina Fusion of spine, lumbosacral region M43.27 ; Low back pain M54.50 ; Other intervertebral disc degeneration, lumbar region M51.36 and Segmental and somatic dysfunction of lumbar region M99.03 [facility] [address] [place] [address] 06/06/2022 Ligia Messina Fusion of spine, lumbosacral region M43.27 ; Low back pain M54.50 ; Other intervertebral disc degeneration, lumbar region M51.36 and Segmental and somatic dysfunction of lumbar region M99.03 [facility] [address] [facility] [place] [address] 06/11/2022 Ligia Messina Fusion of spine, lumbosacral region M43.27 ; Low back pain M54.50 ; Other intervertebral disc degeneration, lumbar region M51.36 and Segmental and somatic dysfunction of lumbar region M99.03 [facility] [address] [place] [address] 06/18/2022 Shana Teachout Fusion of spine, lumbosacral region M43.27 ; Low back pain M54.50 ; Other intervertebral disc degeneration, lumbar region M51.36 and Segmental and somatic dysfunction of lumbar region M99.03 [facility] [address] [place] [address] 07/01/2022 Ligia Messina Fusion of spine, lumbosacral region M43.27 ; Low back pain M54.50 ; Other intervertebral disc degeneration, lumbar region M51.36 and Segmental and somatic dysfunction of lumbar region M99.03 [facility] [address] [place] [address] 07/09/2022 Shana Teachout Fusion of spine, lumbosacral region M43.27 ; Low back pain M54.50 ; Other intervertebral disc degeneration, lumbar region M51.36 and Segmental and somatic dysfunction of lumbar region M99.03 [facility] [address] [place] [address] 07/17/2022 Ligia Messina Fusion of spine, lumbosacral region M43.27 ; Low back pain M54.50 ; Other intervertebral disc degeneration, lumbar region M51.36 and Segmental and somatic dysfunction of lumbar region M99.03 [facility] [address] [place] [address] 07/31/2022 Shana Teachout [facility] [address] [place] [address] 08/19/2022 [facility] [address] [place] [address] 09/09/2022 Shana Teachout [facility] [address] [place] [address] 09/30/2022 Ligia Messina [facility] [address] [place] [address] [facility] [address] [place] [address] 11/26/2022 [facility] [address] [place] [address] 12/24/2022 [facility] Encounter Date Diagnosis Assessment Notes Treatment Notes Treatment Clinical Notes 07/17/2022 Fusion of spine, lumbosacral region (ICD-10 - M43.27) 07/17/2022 Low back pain (ICD-10 - M54.50) 07/09/2022 Fusion of spine, lumbosacral region (ICD-10 - M43.27) 07/09/2022 Low back pain (ICD-10 - M54.50) 07/01/2022 Fusion of spine, lumbosacral region (ICD-10 - M43.27) 07/01/2022 Low back pain (ICD-10 - M54.50) 06/18/2022 [...] 05/21/2022 Low back pain (ICD-10 - M54.50) 05/06/2022 Fusion of spine, lumbosacral region (ICD-10 - M43.27) 05/06/2022 Low back pain (ICD-10 - M54.50) 05/02/2022 Fusion of spine, lumbosacral region (ICD-10 - M43.27) 05/02/2022 Low back pain (ICD-10 - M54.50) 04/29/2022 Fusion of spine, lumbosacral region (ICD-10 - M43.27) 04/29/2022 Low back pain (ICD-10 - M54.50) 04/25/2022 Fusion of spine, lumbosacral region (ICD-10 - M43.27) 04/25/2022 Low back pain (ICD-10 - M54.50) 05/24/2022 Low back pain (ICD-10 - M54.50) 04/25/2022 Other intervertebral disc degeneration, lumbar region [...] degeneration, lumbar region (ICD-10 - M51.36) 07/17/2022 Segmental and somatic dysfunction of lumbar [...] Insured Coverage Start Date Coverage End Date [facility] [address] [address] [place] [address] [id number] Keith Francis Spouse - patient is the spouse of the insured 1 MEDICAL (GENERAL) HISTORY Medical History History ICD Code Acid reflux Anxiety Surgical History Surgery Date(Month/Year) cholecystectomy 11/2012 L3-4,L4-5 Fusion 10/29/2021
--- NOTE | 2023-04-23 15:00 | CRLHL7_ITS ---
For Patients: As a result of the Century Cures Act, medical imaging exams and procedure reports are released immediately into your electronic medical record. You may view this report before your referring provider. If you have questions, please contact your health care provider. INDICATION: Ovarian cysts COMPARISON: 07/12/2019 TECHNIQUE: 2D hyde scale and color Doppler images were acquired of the pelvis using a transabdominal and transvaginal approach. FINDINGS: Sonographic images demonstrate a normal size and smooth outer contour of the uterus. Uterus measures 9.8 cm in length by 3.8 cm in AP diameter by 4.8 cm in transverse dimension. The myometrium has a mildly heterogeneous echotexture. The endometrial lining measures 8 mm in composite thickness. The right ovary measures 3.7 x 2.4 x 3.1 cm in size and the left ovary measures 3.4 x 3.0 x 3.3 cm. The ovaries demonstrate normal arterial and venous blood flow on color Doppler analysis. Small cyst within the left ovary with increased echogenicity measuring 8 x 6 x 8 millimeters. Multiple follicles are present bilaterally. There are no suspicious fluid collections within the cul-de-sac. IMPRESSION: Multiple ovarian follicles are present bilaterally. Small hyperechoic cyst left ovary measuring 8 millimeters. No torsion or excess pelvic free fluid. Dictated by Abdulaziz Atkinson MD @ 04/24/2023 9:11:13 AM (Electronically Signed)
== END 2023-04-23 14:52 | disposition home or self-care (01) ==
LOC: US 14:52
PROVIDERS: PCP Physician Assistant Medical; Visit Provider Physician Assistant
DX: R10.2 Pelvic and perineal pain (principal); N83.202 Unspecified ovarian cyst, left side
CPT/HCPCS: 76830; 76856

== ENCOUNTER 2023-06-19 16:50 | Outpatient (CLI) | payer BC, SELFPAY ==
--- OUTSIDE RECORDS SUMMARY | 2023-06-19 16:52 | XMS_ITS | Continuity of Care Document ---
Author Name Unknown Organization [facility] Address [address] [place] [address] Phone Care Team Providers Care Electronic Publishing Specialist Name Role Phone Panvica PAC, Franklin Unavailable [...] C, [address], [place], [place], [id number], [place] tel:[phone] [facility] Encounter for other specified surgical aftercare 3 Hodan Reid. [facility], [address] [place] [address], [address], [facility], [place], [id number] , [place]. tel:[phone] Referring Provider: Franklin Bates, [facility] [address], [address], [place], [address] . tel:[phone] Office/Outpat ient Visit,Est, [facility], [address], [place], [id number], [place] tel:[phone] [facility] Encounter for other specified surgical aftercare 2 Hodan Reid. [facility], [address], [address], [facility], [place], [address] , [place]. tel:[phone] Referring Provider: Franklin Bates, [facility] [address], [address], [place], [address] . tel:[phone] Office/Outpat ient Visit,Est, [facility], [address], [place], [place], [id number], [place] tel:[phone] [facility] [place] Encounter for other specified surgical aftercare 2 Panvica Franklin. [facility], [address], [address], [place], [place], [address] , [place]. tel:[phone] Referring Provider: Franklin Bates, [facility] [address], [address], [place], [address] . tel:[phone] [facility], [address], [place], [id number], [place] tel:[phone] [facility] Encounter for other specified surgical aftercare 2 Monroe Herman. [facility], [address], [address], [place], [place], [address] , [place]. tel:[phone] Referring Provider: Franklin Bates, [facility] [address], [address], [place], [address] . tel:[phone] [facility], [address], [place], [id number], [place] tel:[phone] [facility] No Information 2 Panvica Franklin. [facility], [address], [address], [place], [address] , [place]. tel:[phone] Referring Provider: Franklin Bates, [facility] [address], [address], [place], [address] . tel:[phone] [facility], [address], [place], [address], [place] tel:[phone] [facility] No Information 2 Monroe Herman. [facility], [address], [address], [place], [place], [address] , [place]. tel:[phone] Referring Provider: Franklin Bates, [facility] [address], [address], [place], [address] . tel:[phone] Office/Outpat ient Visit,Est, [facility], [address], [place], [address], [place] tel:[phone] [facility] Other intervertebral disc displacement, lumbar regionOther intervertebral disc degeneration, lumbar region Jul- 2 Panvica Franklin. [facility], [address], [address], [place], [place], [address] , [place]. [phone] Referring Provider: Franklin Bates, [facility] [address], [address], [place], [address] . tel:[phone] Office/Outpat ient Visit,Est, [facility], [address], [place], [address], [place] tel:[phone] [facility] Other intervertebral disc degeneration, lumbar regionOther intervertebral disc displacement, lumbar region Mar-1 0-202 2 Panvica Franklin. [facility], [address], [address], [place], [place], [address] , [place]. [phone] Referring Provider: Franklin Bates, [facility] [address], [address], [place], [address] . tel:[phone] Office/Outpat ient Visit,Est, [facility], [address], [place], [address], [place] tel:[phone] [facility] Other intervertebral disc degeneration, lumbar regionLow back pain 1 Fer Sutton. [facility], [address], [address], [place], [place], [address] , [place]. [phone] Referring Provider: Franklin Bates, [facility] [address], [address], [place], [address] . tel:[phone] Office/Outpat ient Visit,Est, [facility], [address], [place], [place], [address], [place] tel:[phone] [facility] Other intervertebral disc degeneration, lumbar regionOther intervertebral disc displacement, lumbar region Carlos Manuel-0 7-202 1 Panvica Franklin. [facility], [address] [place] [address], [address], [place], [place], [address] , [place]. [phone] Referring Provider: Franklin Bates, [address], [address], [place], [address] . tel:[phone] Office/Outpat ient Visit,Est, [facility], [address], [place], [place], [address], [place] tel:[phone] [facility] Other intervertebral disc degeneration, lumbar regionOther intervertebral disc displacement, lumbar regionLow back pain Sep-0 3-202 0 Panvica Franklin. [facility], [address] [place] [address], [address], [facility] [place], [address] , [place]. [phone] Referring Provider: Franklin Bates, [address], [address], [place], [address] . tel:[phone] Office/Outpat ient Visit,New, [facility], [address], [place], [address], [place] tel:[phone] [facility] Other intervertebral disc degeneration, lumbar regionOther intervertebral disc displacement, lumbar regionLow back pain Quintin-0 2-202 0 Panvica Franklin. [facility], [address] [place] [address], [address], [place], [place], [address] , [place]. [phone] Referring Provider: Franklin Bates, [address], [address], [place], [address] . tel:[phone] Family History Family Member Type Diagnosis Age At Onset No Information Payers Payer name Insurance type Covered constitution party ID Sofie rivers(s) [facility] [id number] Social History Type Description Quantity Date Captured [...]
--- OUTSIDE RECORDS SUMMARY | 2023-06-19 16:52 | XMS_ITS | Referral Summary ---
Author Name Unknown Organization [facility] Address [address] [place] [address] Care Team Providers Care Senior Manufacturing Engineer Name Role Phone Colleen Dangelo PA-C Primary Care Provider [phone] Allergies No known active allergies Medications Medication Sig Dispensed Refills Start Date End Date Status multivitamin, therapeutic (THERA-VIT) TABS tablet Take 1 tablet by mouth daily 0 Active acetaminophen (TYLENOL) 325 MG tabletIndications:He morrhagic ovarian cyst Take 3 tablets (975 mg) by mouth every 6 hours as needed for mild pain 0 04/14/2019 Active docusate sodium (COLACE) 100 MG capsuleIndications:D rug-induced constipation Take 1 capsule (100 mg) by mouth 2 times daily 0 04/14/2019 Active ibuprofen (ADVIL/MOTRIN) 600 MG tabletIndications:He morrhagic ovarian cyst Take 1 tablet (600 mg) by mouth every 6 hours as needed (mild pain) 0 04/14/2019 Active oxyCODONE (ROXICODONE) 5 MG tabletIndications:He morrhagic ovarian cyst,Ruptured ovarian cyst Take 1 tablet (5 mg) by mouth every 6 hours as needed (pain control or improvement in physical function.) 8 tablet 0 04/14/2019 Active Active Problems Problem Noted Date Diagnosed Date Ruptured ovarian cyst 04/14/2019 Social History Tobacco Use Types Packs/Day Years Used Date Smoking Tobacco: Never Assessed Adolescent Education Answer Date Record ed Getting School Help Needed Not on file 03/02 Sex and Gender Information Value Date Recorded Sex Assigned at Not on file Gender Identity Not on file Sexual Orientation Not on file Last Filed Vital Signs Vital Sign Reading Time Taken Comments Blood Pressure 100/38 04/14/2019 3:34 PM INSURANCE COUNSELOR Pulse 63 04/14/2019 3:30 AM INSURANCE COUNSELOR Temperature 36.6 ??C (97.9 ??F) 04/14/2019 3:34 PM CS T Respiratory Rate 16 04/14/2019 3:34 PM INSURANCE COUNSELOR Oxygen Saturation 97% 04/14/2019 3:34 PM INSURANCE COUNSELOR Inhaled Oxygen Concentration - - Weight 61.2 kg (135 lb) 04/14/2019 1:23 AM INSURANCE COUNSELOR Height - - Body Mass Index - - Plan of Treatment Not on file Advance Directives For more information, please contact: [phone] Latest Code Status on File Code Status Date Activated Date Inactivated Comments Full Code 04/14/2019 11:07 AM Question Answer Comments Code status determined by: Discussion wi th patient/legal decision maker Code Status History Code Status Date Activated Date Inactivated Comments Full Code 04/14/2019 4:26 AM 04/14/2019 11:07 AM Question Answer Comments Code status determined by: Discussion wi th patient/legal decision maker Care Teams Senior Manufacturing Engineer Relationship Specialty Start Date End Date Colleen Dangelo PA-C [facility] [address] [place] [address] PCP - General 04/14/19
--- OUTSIDE RECORDS SUMMARY | 2023-06-19 16:52 | XMS_ITS | Clinical Summary ---
Author Name Unknown Organization [facility] Address [address] [place] [address] Care Team Providers Care Wardrobe Specialty Worker Name Role Phone Colleen Dangelo PA-C Primary Care Provider [phone] Allergies No known active allergies Medications Medication [...] Comments Blood Pressure 100/38 04/14/2019 3:34 PM PARTS MANAGER Pulse 63 04/14/2019 3:30 AM PARTS MANAGER Temperature 36.6 ??C (97.9 ??F) 04/14/2019 3:34 PM CS T Respiratory Rate 16 04/14/2019 3:34 PM PARTS MANAGER Oxygen Saturation 97% 04/14/2019 3:34 PM PARTS MANAGER Inhaled Oxygen Concentration - - Weight 61.2 kg (135 lb) 04/14/2019 1:23 AM PARTS MANAGER Height - - Body Mass Index - - Plan of Treatment Health Maintenance Due Date Last Done Comments ADVANCE CARE PLANNING 1984 ANNUAL REVIEW OF HM ORDERS 1984 HEPATITIS B IMMUNIZATION (1 of 3 - 3-dose series) 1984 YEARLY PREVENTIVE VISIT 1984 COVID-19 Vaccine (#1) 1984 HIV SCREENING 02/08/1999 HEPATITIS C SCREENING 02/08/2002 PAP 02/08/2005 DTAP/TDAP/TD IMMUNIZATION (1 - Tdap) 02/08/2009 INFLUENZA VACCINE (#1) 2023 2, 03/24/2019, 03/19/2018, Additional history exists PHQ-2 (once per calendar year) 2023 HPV IMMUNIZATION Aged Out No longer e ligible based on patient's age to complete this topic IPV IMMUNIZATION Aged Out No longer e ligible based on patient's age to complete this topic MENINGITIS IMMUNIZATION Aged Out No l onger eligible based on patient's age to complete this topic Pneumococcal Vaccine: Pediatrics (0 to 5 Years) and At-Risk Patients (6 to 64 Years) Aged Out No longer eligible based on patient's age to complete this topic RSV MONOCLONAL ANTIBODY Aged Out No l onger eligible based on patient's age to complete this topic Advance Directives For more information, please contact: [phone] Latest Code Status on File Code Status Date Activated Date Inactivated Comments Full Code 04/14/2019 11:07 AM Question Answer Comments Code status determined by: Discussion wi th patient/legal decision maker Code Status History Code Status Date Activated Date Inactivated Comments Full Code 04/14/2019 4:26 AM 04/14/2019 11:07 AM Question Answer Comments Code status determined by: Discussion wi th patient/legal decision maker Care Teams Wardrobe Specialty Worker Relationship Specialty Start Date End Date Colleen Dangelo PA-C [facility] [address] [place] [address] PCP - General 04/14/19
--- OUTSIDE RECORDS SUMMARY | 2023-06-19 16:53 | XMS_ITS | Clinical Summary ---
Author Name Unknown Organization [facility] Address [place], [place] [address] Care Team Providers Care Yard Jockey Name Role Phone Colleen Dangelo PA-C Primary Care Provider [phone] Allergies No known active allergies Medications Medication Sig Dispensed Refills Start Date End Date Status diazePAM (VALIUM) 2 mg tabletIndications: Acute postoperative pain Take 1 Tablet (2 mg) by mouth every 6 hours if needed for Muscle Spasm. No refills. If you need additional muscle relaxant, we will offer you a non-addictive alternative. 16 Tablet 0 11/02/2021 Active WalkerIndications: Spinal stenosis of lumbar region, unspecified whether neurogenic claudication present Rolling Walker for home use for 3 months 1 Each 0 11/02/2021 Active ondansetron (ZOFRAN) 4 mg tabletIndications: Aftercare following surgery,Nausea and vomiting, unspecified vomiting type Take 1 Tablet (4 mg) by mouth every 8 hours if needed for Nausea/Vomiting. 30 Tablet 0 11/03/2021 Active bisacodyL (DULCOLAX) 10 mg suppositoryIndicat ions:Aftercare following surgery Insert 1 Suppository (10 mg) rectally once daily if needed (constipation). 10 Suppository 0 11/03/2021 Active omeprazole 20 mg tabletIndications: Nausea and vomiting, unspecified vomiting type,Gastroesophag eal reflux disease, unspecified whether esophagitis present Take 1 Tablet (20 mg) by mouth once daily before a meal. 30 Tablet 0 11/04/2021 Active prochlorperazine (COMPAZINE) 10 mg tabletIndications: Nausea and vomiting, unspecified vomiting type Take 1 Tablet (10 mg) by mouth every 6 hours if needed for Nausea/Vomiting. 30 Tablet 0 11/04/2021 Active acetaminophen (TYLENOL EXTRA STRGTH) 500 mg tabletIndications: Aftercare following surgery Take 2 Tablets (1,000 mg) by mouth every 6 hours if needed for Pain. Max acetaminophen dose: 4000mg in 24 hrs. 0 11/04/2021 Active sennosides-docusat e (SENOKOT S) (8.6-50 mg) tabletIndications: S/P lumbar spinal fusion Take 1-4 Tablets by mouth 2 times daily if needed for Constipation. 50 Tablet 0 11/04/2021 Active morphine IMMEDIATE RELEASE 15 mg tabletIndications: Acute postoperative pain Take 1-2 Tablets (15-30 mg) by mouth every 4 hours if needed for Pain (as pain gets better, take less and go longer between doses). 40 Tablet 0 11/04/2021 Active bismuth subsalicylate (PEPTO-BISMOL) 262 mg/15 mL suspensionIndicati ons:Nausea and vomiting, unspecified vomiting type,Gastroesophag eal reflux disease, unspecified whether esophagitis present Take 30 mL by mouth every 6 hours if needed for GI Upset. 0 11/05/2021 Active Active Problems Problem Noted Date Diagnosed Date Acute postoperative pain Postoperative back pain S/P lumbar spinal fusion Mild intermittent asthma without complication Encounters Date Type Department Care Team Description 04/16/2023 Lab Requisition [facility] [phone] Marilin Altamirano PA-C from Last 3 Months Family History Medical History Relation Name Comments Cancer-breast Maternal Aunt 1 great great 40-50/40-50 Cancer-breast Maternal Aunt 2 Cancer-breast Maternal Grandmother great 40-50/ passed at 31 Cancer No Family History Cancer-colon No Family History Cancer-ovarian No Family History Cancer-prostate No Family History Relation Name Status Comments Maternal Aunt 1 great great Alive Maternal Aunt 2 Maternal Grandmother great Alive Social History Tobacco Use Types Packs/Day Years Used Date Smoking Tobacco: Never Smokeless Tobacco: Never Alcohol Use Standard Drinks/Week Comments Yes 0 (1 standard drink = 0.6 oz pur e alcohol) occasional Social Connections Answer Date Recorded Frequency of Communication with Friends and Fami ly Not on file 11/03/2021 Sex and Gender Information Value Date Recorded Sex Assigned at Not on file Gender Identity Not on file Sexual Orientation Not on file Obstetrics History Last Filed Vital Signs Vital Sign Reading Time Taken Comments Blood Pressure 122/64 12/10/2021 12:15 PM CDT Pulse 77 12/10/2021 12:15 PM CDT Temperature 36.7 ??C (98 ??F) 12/10/2021 12:15 PM CDT Respiratory Rate 15 12/10/2021 12:15 PM CDT Oxygen Saturation 97% 12/10/2021 12:15 PM CDT Inhaled Oxygen Concentration - - Weight 79.4 kg (175 lb) 11/03/2021 12:35 PM CDT Height 160 cm (5' 3) 11/03/2021 12:35 PM CDT Body Mass Index 31 11/03/2021 12:35 PM CDT Plan of Treatment Health Maintenance Due Date Last Done Comments Pneumococcal series for age 6-64 (1 of 2 - PCV) 02/08/1990 Tdap 02/08/1995 Depression screening for age 12+ 1996 HIV for age 15-65 02/08/1999 BMI (ht and wt on same day) for age 18+ 02/08/2002 Hepatitis C screening for ag e 18-79 02/08/2002 Tetanus booster 2004 COVID-19 vaccine series ( season) 2023 05/07/2021, 09/08/2020, 08/17/2020 Influenza for age 9-49 01/17/2023 Pap test for age 21-65 04/15/2026 , 04/15/2023, 08/04/2017, Additional history exists Medical Devices Implanted Type Area Parimutuel Ticket Seller Device Identifier Shelf Expiration Date Model / Serial / Lot [id number] one Matrix 10cc Mansura Putty Dbm Implanted:Qty: 1 on 10/29/2021 by Herman Monroe MD at [facility] Explanted:at [facility] (Quantity not on file) N/A: Spine Medtronic Spine/Ortho 08/28/2024 [id number] / [id number] / K-Wire 2pk - [id number] Implanted:Qty: 1 on 10/29/2021 by Herman Monroe MD at [facility] N/A: Spine [employer] [id number] / / Bone 1-4mm 60cc Medtronic Fine Canclls Freeze Dried - [id number] Implanted:Qty: 1 on 10/29/2021 by Herman Monroe MD at [facility] Explanted:at [facility] (Quantity not on file) N/A: Spine Medtronic Spine/Ortho 08/25/2025 [id number] / [id number] / [id number] one Matrix 2.5x5cm Mansura Plf Dbm Implanted:Qty: 1 on 10/29/2021 by Herman Monroe MD at [facility] Explanted:at [facility] (Quantity not on file) N/A: Spine Medtronic Spine/Ortho 09/23/2024 [id number] / [id number] / Screw Lmbr Post 6.5x45mm Solera 5.5/6 Va Cocr - [id number] Implanted:Qty: 6 on 10/29/2021 by Herman Monroe MD at [facility] N/A: Spine Medtronic Spine/Ortho [id number] / / Alexys Lmbr 70x5.5mm Solera 5.5/6 Cvd Titnm - [id number] Implanted:Qty: 2 on 10/29/2021 by Herman Monroe MD at [facility] N/A: Spine Medtronic Spine/Ortho [id number] / / Set Screw Lmbr Ant 5.5mm Solera Break Off - [id number] Implanted:Qty: 6 on 10/29/2021 by Herman Monroe MD at [facility] N/A: Spine Medtronic Spine/Ortho [id number] / / Salima Spacer Endoskeleton Tt Implant 4' Lrg [id number] Implanted:Qty: 1 on 10/29/2021 by Herman Monroe MD at [facility] N/A: Spine 04/19/2024 [id number] / / [id number] Description:SALIMA SPACER ENDO SKELETON TT IMPLANT 4' LRG [id number] Salima Spacer Endoskeleton Tt Implant 4' Lrg [id number] Implanted:Qty: 1 on 10/29/2021 by Herman Monroe MD at [facility] N/A: Spine 12/02/2025 [id number] / / [id number] Description:SALIMA SPACER ENDO SKELETON TT IMPLANT 4' LRG [id number] Procedures Procedure Name Priority Date/Time Associated Diagnosis Comments LAB TRACKING EVENT Routine 04/15/2023 12 :00 PM RESIDENTIAL PROGRAM COORDINATOR CARBON DIOXIDE OPERATOR THIN PREP PAP SCREEN IMAGED Routine 04/15/2023 12:00 PM RESIDENTIAL PROGRAM COORDINATOR HPV THIN PREP Routine 04/15/2023 12:00 PM RESIDENTIAL PROGRAM COORDINATOR from Last 3 Months Results * LAB TRACKING EVENT (04/15/2023 12:00 PM RESIDENTIAL PROGRAM COORDINATOR) Other (Other) Client Collect / Unknown 04/15/2023 12:00 PM RESIDENTIAL PROGRAM COORDINATOR 04/16/2023 4:19 PM RESIDENTIAL PROGRAM COORDINATOR Marilin Altamirano PA-C LAB BILL ONLY [facility] [address] [place] [address], * CARBON DIOXIDE OPERATOR THIN PREP PAP SCREEN IMAGED (04/15/2023 12:00 PM RESIDENTIAL PROGRAM COORDINATOR) Case Report Gynecologic Cytology Report ? Case: [id number] ? Authorizing Provider: ??Marilin Altamirano PA-C ?Collected: ? 04/15/2023 1200 ? Ordering Location: ? [facility] ?Received: ?04/17/2023 1249 ? First Screen: ?Abiola Fitzpatrick ? Specimen: ?CARBON DIOXIDE OPERATOR ThinPrep Vial Screening, Cervical ? 04/25/2023 12:56 PM RESIDENTIAL PROGRAM COORDINATOR [facility] INTERPRETATION/ RESULT NEGATIVE FOR INTRAEPITHELIAL LESION OR MALIGNANCY (NIL) (none) 04/25/2023 12:56 PM RESIDENTIAL PROGRAM COORDINATOR [facility] IMEN ADEQUACY Satisfactory for evaluation Endocervical component present 04/25/2023 12:56 PM RESIDENTIAL PROGRAM COORDINATOR [facility] HPV REQUEST HPV and PAP 04/25/2023 12:56 PM RESIDENTIAL PROGRAM COORDINATOR [facility] Date of LMP 03/18/2023 04/25/2023 12:56 PM RESIDENTIAL PROGRAM COORDINATOR [facility] Last Pap Date 08/04/2017 04/25/2023 12:56 PM RESIDENTIAL PROGRAM COORDINATOR [facility] Last Pap Result NIL 12:56 PM RESIDENTIAL PROGRAM COORDINATOR [facility] Abnormal Pap or Ira Bx in last 5 years No 04/25/2023 12:56 PM RESIDENTIAL PROGRAM COORDINATOR [facility] Menstrual Status Regular Periods 04/25/2023 12:56 PM RESIDENTIAL PROGRAM COORDINATOR [facility] Ira Bx Done Today No 04/25/2023 12:56 PM RESIDENTIAL PROGRAM COORDINATOR [facility] Additional Information 04/25/2023 12:56 PM RESIDENTIAL PROGRAM COORDINATOR [facility] Comment: Interpreted at [facility] [facility] - [address], [place] [address] Automated Review Successful 04/25/2023 12:56 PM RESIDENTIAL PROGRAM COORDINATOR [facility] Comment:Specimen processed s uccessfully by automated idea man device, ProteoSensePrep Imaging System, [employer] ANCILLARY TESTING CARBON DIOXIDE OPERATOR HPV Ordered, Please see separate report 04/25/2023 12:56 PM RESIDENTIAL PROGRAM COORDINATOR [facility] Note The pap test is a screening technique, not a diagnostic procedure. It is used primarily to screen for squamous cancers and precursor lesions. Published studies have shown that it is subject to both false negative and false positive results. The pap test should not be used as the sole means to diagnose or exclude pre-malignant and malignant lesions. 04/25/2023 12:56 PM RESIDENTIAL PROGRAM COORDINATOR [facility] Other (Cervical) 04/15/2023 12:00 PM RESIDENTIAL PROGRAM COORDINATOR 04/17/2023 12:49 PM RESIDENTIAL PROGRAM COORDINATOR August Gentry Altamirano PA-C PATHOLOGY/CYTOLOGY Performing Organization Address City/[facility]/ZIP Co de Phone Number [facility] [address] * HPV HIGH RISK (04/15/2023 12:00 PM RESIDENTIAL PROGRAM COORDINATOR) TYPE 16 Negative Negative 04/22/2023 5:06 PM RESIDENTIAL PROGRAM COORDINATOR [facility] TYPE 18 Negative Negative 04/22/2023 5:06 PM RESIDENTIAL PROGRAM COORDINATOR [facility] OTHER HIGH RISK TYPES Negative Negative 04/22/2023 5:06 PM RESIDENTIAL PROGRAM COORDINATOR [facility] Other (Cervical) 04/15/2023 12:00 PM RESIDENTIAL PROGRAM COORDINATOR 04/17/2023 12:49 PM RESIDENTIAL PROGRAM COORDINATOR Narrative [facility] - 04/22/2023 5:06 PM RESIDENTIAL PROGRAM COORDINATOR HPV types 16, 18, 31, 33, 35, 39, 45, 51, 52, 56, 58, 59, 66 and 68 DNA were undetectable or below the pre-set threshold. Methodology: Deepa Ruth Ann 4800 HPV Test August Gentry Altamirano PA-C MICROBIOLOGY Performing Organization Address City/[facility]/ZIP Co de Phone Number [facility] [address] [place] [address], [place] from Last 3 Months Advance Directives Latest Code Status on File Code Status Date Activated Date Inactivated Comments Full Code 10/29/2021 5:53 PM 11/02/2021 8:06 PM Question Answer Comments Code Status Discussion: Reviewed Preferences Code Status History Code Status Date Activated Date Inactivated Comments Full Code 11/27/2012 6:49 AM 11/27/2012 6:16 PM Care Teams Yard Jockey Relationship Specialty Start Date End Date Colleen Dangelo PA-C [address] [place] [id number] PCP - General Physician Public Health Sanitarian Technician 10/08/21
--- NOTE | 2023-06-19 17:00 | CRLHL7_ITS ---
For Patients: As a result of the Century Cures Act, medical imaging exams and procedure reports are released immediately into your electronic medical record. You may view this report before your referring provider. If you have questions, please contact your health care provider. CLINICAL HISTORY: Follow-up left ovarian cyst TECHNIQUE: 2D hyde scale and color Doppler images were acquired of the pelvis using a transvaginal approach. Comparison 04/23/2023 FINDINGS: On transvaginal imaging, the myometrium has a normal uniform echotexture. The uterus measures 8.7 x 4.5 x 4.6 cm. The endometrial lining appears normal and measures 9 mm in thickness. The left ovary measures 4.6 x 2.8 x 3.8 cm in size and the right ovary measures 3.6 x 2.3 x 2.8 cm. Resolution of previously noted hyperechoic cyst left ovary. Interval development of hemorrhagic cyst within the left ovary measuring 2.5 x 1.9 x 2.2 cm. The ovaries demonstrate normal arterial and venous blood flow on color Doppler analysis. There are no suspicious fluid collections within the cul-de-sac. IMPRESSION: Benign hemorrhagic left ovarian cyst measuring 2.5 cm. Resolution of previously noted hyperechoic cyst left ovary. Dictated by Abdulaziz Atkinson MD @ 06/20/2023 10:15:31 AM (Electronically Signed)
== END 2023-06-19 16:51 | disposition home or self-care (01) ==
LOC: US 16:51
PROVIDERS: PCP Physician Assistant Medical; Visit Provider Physician Assistant
DX: N83.202 Unspecified ovarian cyst, left side (principal)
CPT/HCPCS: 76830

== ENCOUNTER 2024-04-29 14:59 | Outpatient (CLI) | payer BC, SELFPAY | END 2024-04-29 15:00 | disposition home or self-care (01) | LOC: NFLDREF 04-30 08:39 | PROVIDERS: PCP Physician Assistant Medical; Referring Provider Physician Assistant Medical; Visit Provider Nurse Practitioner Family | DX: N30.90 Cystitis, unspecified without hematuria (principal) | CPT/HCPCS: 87086 ==

== ENCOUNTER 2024-05-27 13:52 | Outpatient (CLI) | payer BC, SELFPAY ==
--- NOTE | 2024-05-27 15:00 | CRLHL7_ITS ---
For Patients: As a result of the Century Cures Act, medical imaging exams and procedure reports are released immediately into your electronic medical record. You may view this report before your referring provider. If you have questions, please contact your health care provider. BILATERAL SCREENING MAMMOGRAM WITH COMPUTER-AIDED DETECTION AND TOMOSYNTHESIS TECHNIQUE: CC and MLO views were obtained. These mammographic images have been obtained using full-field digital technique. These mammographic images were interpreted with the benefit of computer-aided detection. Breast tomosynthesis was used in this interpretation. COMPARISON FILM: 04/02/23, 07/03/22, 07/02/21. FINDINGS: There are scattered areas of fibroglandular density. IMPRESSION: There is no radiographic evidence for malignancy. ASSESSMENT: BI-RADS Category 1: Negative RECOMMENDATION: Routine screening mammogram in 1 year. A lay language report of this examination will be provided to the patient. ABDULAZIZ REMY M.D. Diagnostic Radiologist [email or web address] Transcribed: 05/31/2024, 10:[address]/Dictated by: Abdulaziz Remy MD @ 05/28/2024 11:45:00 AM (Electronically Signed)
== END 2024-05-27 13:53 | disposition home or self-care (01) ==
PROVIDERS: PCP Physician Assistant Medical; Visit Provider Physician Assistant
DX: Z12.31 Encounter for screening mammogram for malignant neoplasm of breast (principal)
CPT/HCPCS: 77063; 77067

== ENCOUNTER 2024-06-02 14:34 | Outpatient (CLI) | payer OTHER, SELFPAY ==
--- NOTE | 2024-06-02 14:45 | CRLHL7_ITS ---
For Patients: As a result of the Century Cures Act, medical imaging exams and procedure reports are released immediately into your electronic medical record. You may view this report before your referring provider. If you have questions, please contact your health care provider. CLINICAL HISTORY: Pelvic pain TECHNIQUE: 2D hyde scale ultrasound. In addition color Doppler and spectral Doppler analysis was performed of the pelvis using a transabdominal and transvaginal approach. FINDINGS: The uterus measures 8.4 x 4.4 x 4.7 cm. The endometrial lining appears normal and measures 5.7 mm in thickness. The right ovary measures 2.9 x 1.9 x 3.1 cm in size and the right ovary measures 3.8 x 2.5 x 2.4 cm. The ovaries demonstrate normal arterial and venous blood flow on color Doppler and spectral Doppler analysis. There are no suspicious fluid collections within the cul-de-sac. Incidental echogenic focus within the left ovary measures 9 x 5 x 6 millimeters has the appearance of a collapsing cyst or perhaps a dermoid. IMPRESSION: No ovarian torsion or adnexal mass. No excess pelvic free fluid. Collapsing cyst or dermoid within the left ovary measures 9 millimeters. Dictated by Abdulaziz Atkinson MD @ 06/03/2024 9:22:48 AM (Electronically Signed)
== END 2024-06-02 14:35 | disposition home or self-care (01) ==
LOC: US 14:36
PROVIDERS: PCP Physician Assistant Medical; Visit Provider Physician Assistant
DX: R10.2 Pelvic and perineal pain (principal)
CPT/HCPCS: 76830; 76856; 93976